=== PATIENT | male | born 1965 | race Caucasian/White ===

== ENCOUNTER 2020-01-08 12:38 | Emergency (ER) | payer OTHER, SELFPAY ==
[2020-01-08 12:54] VITALS: BP 173/82; PULSE 105; RESP 18; TEMP 37.3; O2SAT 173; BMI 42.3
[2020-01-08] MEDS: Lidocaine HCl 1 % MPF 5 ML VIAL SUBCUT ×2 (13:53)
[2020-01-08 14:17] VITALS: BP 150/70; PULSE 100; RESP 18; TEMP 36.8; O2SAT 97
--- NOTE | 2020-01-08 15:07 | PC.NURSE ---
Report given to Nasreen VÁZQUEZ. No further questions from RN taking over. provider aware.
--- NOTE | 2020-01-08 15:12 | ED.LOWEXIN ---
HPI - Extremity Injury (Lower) General Chief Complaint: Extremity Injury, Lower Stated Complaint: TOE PAIN Time Seen by Provider: 01/08/20 13:40 History of Present Illness HPI Narrative: patient complains of partly torn off nail on right big toe, no other injury no other complaints Related Data Previous Rx's Medication Instructions Recorded ibuprofen 600 mg PO Q6H PRN #20 tab 01/08/20 Allergies Allergy/AdvReac Type Severity Reaction Status Date / Time cinnamon [CINNAMON] Allergy Severe ANAPHYLAXIS Verified 01/08/20 12:54 Penicillins Allergy Mild FAINTING Unverified 12/16/19 16:45 penicillin V Allergy Unknown Unconscious Verified 01/08/20 12:54 Review of Systems Review of Systems: no fever no chills no shortness of breath no numbness no weakness no tingling, no other injury PMFSH Past Medical History Source: nursing notes reviewed Medical History (Updated 01/08/20 @ 15:14 by ZEN Puente) Diabetes SOB (shortness of breath) Social History Social History Alcohol intake: never Smoking Status: Never smoker Use of substances other than those prescribed or required for medical reasons: No Advance Directives: No Advance Directives Information Provided: No Physical Exam Vital Signs: Vital Signs: Vital Signs Temp Pulse Resp BP Pulse Ox 01/08/20 14:17 98.2 F 100 18 150/70 H 97 01/08/20 12:54 99.2 F 105 H 18 173/82 H 173 H Body Mass Index 42.3 exam no acute distress, A&O x3, Neck is supple Respiratory no respiratory distress Extremities full range of motion in all joints in both legs The right big toe has the distal toenail partially avulsed but it is otherwise attached at the base and there is full range of motion in the joints and no tenderness no evidence of fracture and no laceration Neuro was a and O x3 with no focal weakness , sensation is intact Course Course Course Narrative: procedure note for partially avulsed nail of the right big toe The toe was cleansed with pale a dine The anesthesia was a digital block with 8 cc of 1% lidocaine with full anesthesia With a forceps and scissors the loose part of the distal nail was removed and a bandage applied Discharge Plan Discharge Clinical Impression: Nail avulsion of toe Qualifiers: Encounter type: initial encounter Qualified Code(s): S91.209A - Unspecified open wound of unspecified toe(s) with damage to nail, initial encounter Patient Disposition: Home, Self-Care Additional Instructions: I removed the loosened section of nail No sign infection or fracture Return any time any concerns Prescriptions: New ibuprofen 600 mg tablet 600 mg PO Q6H PRN (Reason: pain) Qty: 20 RF: 0 Interventions: ED Discharge Assessment Last Done: 01/08/20 15:34 Discharge Date/Time: 01/08/20 15:30
[2020-01-08] MEDS: Ibuprofen 600 MG TABLET PO (15:23)
== END 2020-01-08 15:30 | disposition home or self-care (01) ==
PROVIDERS: Emergency Provider Emergency Medicine
DX: S91.201A Unspecified open wound of right great toe with damage to nail, initial encounter (principal); S90.411A Abrasion, right great toe, initial encounter; X58.XXXA Exposure to other specified factors, initial encounter; Y93.9 Activity, unspecified; Y92.9 Unspecified place or not applicable; Y99.9 Unspecified external cause status
CPT/HCPCS: 11730; 99284

== ENCOUNTER 2020-09-13 09:43 | Emergency (ER) | payer OTHER, SELFPAY ==
--- NOTE | ~2020-09-13 | XR_ITS ---
EXAMINATION: XR FOOT, LEFT CLINICAL INFORMATION: Left big toe hit fridge. COMPARISON: None TECHNIQUE: AP, lateral, and oblique views of the left foot. FINDINGS: There is an old fracture base of fifth metatarsal. No acute fracture or dislocation seen. There is no subluxation. The soft tissues are normal. The ankle mortise and subtalar joints are normal. Small calcaneal heel and retrocalcaneal enthesophytes are seen. XR/XR foot LT 2V IMPRESSION: No acute fracture seen. Old fracture fifth base of fifth metatarsal. Small calcaneal and retrocalcaneal enthesophytes.
[2020-09-13 10:00] VITALS: BP 165/86; PULSE 98; RESP 16; TEMP 36.8; O2SAT 98; BMI 44.7
--- NOTE | 2020-09-13 10:07 | ED_ITS ---
HPI - Extremity Injury (Lower) General Chief Complaint: Extremity Injury, Lower Stated Complaint: left toe injury Time Seen by Provider: 09/13/20 09:59 Source: patient Mode of arrival: ambulatory Limitations: no limitations History of Present Illness HPI Narrative: Patient presents ED for left big toe pain. Patient states he hit left big toe on the Fridge last night and had some bleeding. Patient states bleeding resolved but came to ED today to be evaluated. Patient is diabetic and concern for possible infection. Patient has been walking on foot. Related Data Previous Rx's Medication Instructions Recorded ibuprofen 600 mg PO Q6H PRN #20 tab 01/08/20 clindamycin HCl 300 mg PO Q8H #21 cap 09/13/20 Allergies Allergy/AdvReac Type Severity Reaction Status Date / Time cinnamon [CINNAMON] Allergy Severe ANAPHYLAXIS Verified 09/13/20 10:02 Penicillins Allergy Mild FAINTING Verified 09/13/20 10:02 penicillin V Allergy Unknown Unconscious Verified 09/13/20 10:02 Review of Systems Constitutional: Constitutional: Reports as per HPI and Reports no additional constitutional complaints Eyes: Eyes: Reports as per HPI and Reports no additional eye complaints ENT: Reports system reviewed and no additional complaints, except as documented and Reports as per HPI Cardiovascular: Cardiovascular: Reports as per HPI and Reports no additional cardiovascular complaints Respiratory: Respiratory: Reports as per HPI and Reports no additional respiratory complaints Gastrointestinal: Gastrointestinal: Reports as per HPI and Reports no additional gastrointestinal complaints Genitourinary: Genitourinary: Reports no additional male genitourinary complaints and Reports as per HPI Musculoskeletal: Musculoskeletal: Reports no additional musculoskeletal complaints, Reports as per HPI and Reports arthralgias (Left toe pain) Neurologic: Reports system reviewed and no additional complaints, except as documented and Reports as per HPI Psychiatric: Psychiatric: Reports no additional psychiatric complaints and Reports as per HPI [facility] Past Medical History Medical History (Updated 09/13/20 @ 11:03 by ZEN Logan) Diabetes HTN (hypertension) SOB (shortness of breath) Social History Social History Alcohol intake: never Advance Directives: No Advance Directives Information Provided: No Physical Exam Vital Signs: Vital Signs: Last Vital Signs Temp 98.3 F 09/13/20 10:00 Pulse 98 09/13/20 10:00 Resp 16 09/13/20 10:00 BP 165/86 H 09/13/20 10:00 Pulse Ox 98 09/13/20 10:00 Body Mass Index 44.7 Const: General: cooperative, healthy appearing, comfortable, no acute distress, well developed, alert, awake and Physically active Orientation/consciousness: patient oriented x3 HENMT: Head: Yes normal to inspection, Yes No palpable skull fracture present, Yes normocephalic and Yes atraumatic Eyes: General: appearance normal, both eyes and all related structures Neck: Neck: Yes normal visual inspection, Yes full ROM, Yes no lymphadenopathy, Yes no meningeal signs, Yes trachea midline, Yes supple and No tender Chest: Chest palpation & inspection: normal inspection of the chest and normal palpation of entire chest wall Resp: Effort & Inspection: normal respiratory effort and able to speak in complete sentences Auscultation: clear to auscultation bilaterally Cardio: Jugular venous distension: no JVD Heart sounds: S1 normal heart sound present and S2 normal heart sound present GI: Inspection: Yes normal to inspection and No abdominal wall ecchymosis Palpation (GI): Soft to palpation, not firm, nontender, no guarding and not rigid : General: No CVA tenderness and Yes no CVA tenderness Back/Spine/Pelvis: Back: no CVA tenderness, No CVA tenderness and No back tenderness Skin: General skin exam: no rashes or lesions noted and elasticity normal Neuro: General: patient oriented x3, gait normal, no meningeal signs and CN's II-XI intact bilaterally Cranial nerves: Yes CN's II-XII intact bilaterally Extrem: General: Yes normal to inspection and Yes full ROM Ankle/foot/toe images: 1. Abrasion with dried blood. Negative for any deformity or ecchymosis. Negative for subungual hematoma. Was sent for x-ray to e valuate for fracture. Vascular/motor/neuro exam is intact Psych: Appearance: grossly normal, well kempt and not disheveled Course Course Course Narrative: Abrasion on foot. Was sent for x-ray. Tdap ordered. Reevaluation(s) Reevaluation #1: Negative for any fractures of foot. Patient received Tdap. Will be discharged with antibiotics to prevent infection. Patient has diabetes Time: 11:02 MDM - Extremity Injury (Lower) MDM Narrative Medical decision making narrative: Abrasion. Discharge Plan Discharge Clinical Impression: Abrasion foot/toe Patient Disposition: Home, Self-Care Instructions: Abrasion (ED) Additional Instructions: Return to the ED immediately for any redness, swelling, pus discharge, foul odor, fever, chills, worsening pain, or any other concerning symptoms. X-rays came back negative for fracture. Due to history of diabetes will give clindamycin to prevent infection of abrasion. Prescriptions: New clindamycin HCl 300 mg capsule 300 mg PO Q8H Qty: 21 RF: 0 No Action ibuprofen 600 mg tablet 600 mg PO Q6H PRN (Reason: pain) Qty: 20 RF: 0 Referrals: Pepper Cosme MD [Primary Care Provider] - 2 days (Foot pain due to trauma. Positive for abrasion. Foot x-ray negative for fractures. Discharge with antibiotics) Interventions: ED Discharge Assessment Last Done: 09/13/20 11:16 Discharge Date/Time: 09/13/20 11:16 Print Language: Chadian
[2020-09-13] MEDS: Ibuprofen 800 MG TABLET PO (10:30)
[2020-09-13] MEDS: Diphth,Pertus(ACell),Tet Adult 0.5 ML SYRINGE IM (10:30)
== END 2020-09-13 11:16 | disposition home or self-care (01) ==
PROVIDERS: Emergency Provider Emergency Medicine; PCP Pediatrics
DX: S90.812A Abrasion, left foot, initial encounter (principal); E11.9 Type 2 diabetes mellitus without complications; I10 Essential (primary) hypertension; W22.09XA Striking against other stationary object, initial encounter; Y93.9 Activity, unspecified; Y92.9 Unspecified place or not applicable; Y99.9 Unspecified external cause status
CPT/HCPCS: 73620; 90471; 90715; 99283; 99284

== ENCOUNTER 2020-12-02 11:00 | Emergency (ER) | payer OTHER, SELFPAY ==
--- NOTE | ~2020-12-02 | XR_ITS ---
EXAMINATION: XR CHEST CLINICAL INFORMATION: Shortness of breath COMPARISON: Previous chest x-ray most recent July 2011 and left shoulder x-rays most recent February 2019 TECHNIQUE: Frontal view of the chest was obtained. FINDINGS: The cardiac silhouette is enlarged. There may be pulmonary venous redistribution. The lungs are otherwise clear. There is no pleural effusion or pneumothorax. There are degenerative changes of the spine and left shoulder. XR/XR chest 1V IMPRESSION: Enlarged cardiac silhouette and question pulmonary venous redistribution. No evidence of pulmonary edema or pneumonia..
[2020-12-02 11:20] VITALS: BP 211/99; PULSE 103; RESP 26; TEMP 36.8; O2SAT 100; BMI 40.1
[2020-12-02 11:23] VITALS: PULSE 104; RESP 35; O2SAT 100
[2020-12-02 11:59] VITALS: BP 161/100; PULSE 97; RESP 16; TEMP 36.7; O2SAT 97
[2020-12-02 12:00] VITALS: BP 151/75; PULSE 100; RESP 18; O2SAT 100
[2020-12-02 12:06] LABS: MANUAL DIFF FLAG NO
[2020-12-02 12:07] LABS: Basophils Absolute Auto 0.1 X10*3/uL (0.0-0.2); Basophils Percent Auto 0.5 % (0-2); Eosinophils Absolute Auto 0.1 X10*3/uL (0.0-0.4); Eosinophils Percent Auto 1.3 % (0-4); Hematocrit 44.7 % (42-52); Hemoglobin 14.8 g/dl (14.0-18.0); Imm Gran Abs Auto 0.12 X10*3/uL (0.00-0.03); Imm Gran Pct Auto 1.3 % (0.0-0.4); Lymphocytes Absolute Auto 1.4 X10*3/uL (1.2-4.9); Lymphocytes Percent Auto 14.6 % (20-40); Mean Corpuscular HGB Conc 33.1 g/dl (31.0-36.0); Mean Corpuscular Hemoglobin 27.8 pg (27.0-33.0); Mean Corpuscular Volume 83.9 fL (80-98); Mean Platelet Volume 11.6 fL (9.4-12.4); Monocytes Absolute Auto 0.4 X10*3/uL (0.1-1.2); Monocytes Percent Auto 4.5 % (2-11); Neutrophils Absolute Auto 7.2 X10*3/uL (2.0-8.3); Neutrophils Percent Auto 77.8 % (45-73); Platelet Count 247 X10*3/uL (160-400); Red Blood Count 5.33 X10*6/uL (4.60-5.80); Red Cell Distribution Width 13.3 % (11.0-16.0); White Blood Count 9.3 X10*3/uL (4.8-10.8)
--- NOTE | 2020-12-02 12:09 | PC.NURSE ---
RN aware POC [id number]
[2020-12-02 12:13] LABS: Glucose, Whole Blood 320 mg/dL (60-115)
[2020-12-02 12:13] LABS: Carbon Monoxide Refer to POC result
[2020-12-02 12:15] LABS: Carbon Monoxide POC 1.7 %
[2020-12-02 12:23] LABS: COVID-19 Test Negative (Negative); IDNOW Serial# 55D5AD1C
--- NOTE | 2020-12-02 12:29 | ED_ITS ---
HPI - SOB/Dyspnea General Chief Complaint: Dyspnea Stated Complaint: diff breathing x2 hrs Time Seen by Provider: 12/02/20 11:35 Source: patient Mode of arrival: EMS History of Present Illness HPI Narrative: 55-year-old male with arrival via EMS after he woke up short of breath but denies any headache, dizziness, no visual disturbances, no confusion. Patient has a history of obstructive sleep apnea and states that he did not use his CPAP machine last night. He endorses that yesterday his stove was noted to be having a gas leak, this was evaluated by the [employer] and multiple levels were checked within the house and identified to be safe in the patient yesterday had been instructed to return to his home as there were no further concerns. Patient states that he then went to sleep up stairs, but did not wear his CPAP machine and then woke up short of breath. He denies any recent fever, chills, sore throat, GI or symptoms. Patient states he has not gotten his COVID-19 vaccine. Related Data Previous Rx's Medication Instructions Recorded ibuprofen 600 mg tablet 600 mg PO Q6H PRN #20 tab 01/08/20 clindamycin HCl 300 mg capsule 300 mg PO Q8H #21 cap 09/13/20 Allergies Allergy/AdvReac Type Severity Reaction Status Date / Time cinnamon [CINNAMON] Allergy Severe ANAPHYLAXIS Verified 09/13/20 10:02 Penicillins Allergy Mild FAINTING Verified 09/13/20 10:02 penicillin V Allergy Unknown Unconscious Verified 09/13/20 10:02 Review of Systems Review of Systems: Pertinent positives and negatives as stated in HPI 10 point review of systems is otherwise negative. [facility] Past Medical History Source: nursing notes reviewed Medical History Diabetes HTN (hypertension) SOB (shortness of breath) Social History Social History Alcohol intake: never Advance Directives: No Advance Directives Information Provided: No Physical Exam Vital Signs: Vital Signs: Last Vital Signs Temp 98.1 F 12/02/20 14:23 Pulse 101 H 12/02/20 14:23 Resp 14 12/02/20 14:23 BP 173/77 H 12/02/20 14:23 Pulse Ox 95 12/02/20 14:23 Body Mass Index 40.1 VITAL SIGNS: Reviewed. GENERAL: Well developed, well nourished, in no acute distress. HEAD: Normocephalic/atraumatic, EYES: PERRLA, EOMI EARS: Ext canals without abnormality, TMs non-bulging and non-erythematous NOSE: Nares patent bilateral OROPHARYNX: no oral lesions noted, posterior pharynx clear NECK: Supple, no adenopathy LUNGS: Note tachypnea, no wheeze, good inspiratory effort, completing entire sentences, Normal breath sounds SpO2<100> patient on BiPAP and then converted to 100% non-rebreather for suspicion of carbon monoxide exposure. CARDIOVASCULAR: Regular rate and rhythm without noted murmurs, no JVD or lower extremity edema. ABDOMEN: Obese, Soft, non-tender, non-distended with bowel sounds. SKIN: Inspection of the skin reveals no rashes NEUROLOGIC: Alert and oriented x 4. Strength and sensation to light touch were grossly intact x 4. Course Course Course Narrative: 55-year-old male with history and clinical presentation less suspicious for carbon monoxide exposure rather than patient not using CPAP machine at night and likely became acutely hypoxic. Review of all investigations thus far negative for evidence carbon monoxide exposure, patient is a nonsmoker and does not have a history of COPD or asthma. On evaluation, I removed the 100% non-rebreather for evaluation of patient's breathing. Re-evaluation patient continues to improve, it is noted that patient has a glucose of 350 however no evidence of DKA or HHS and patient will be discharged home and take his prescribed medications. In addition, there is noted car diomegaly on the chest x-ray however the comparison is from 11 years ago and patient has had significant health changes during the interim. A follow-up BNP to evaluate the cardiomegaly further supports absent clinical findings to suggest acute heart failure as a contributing feature of patient's presentation. He is otherwise discharged home in stable condition with strict instructions to follow-up with his primary care provider on Friday morning. MDM - SOB/Dyspnea Lab Data Result diagrams: 12/02/20 11:56 12/02/20 11:56 Labs: Lab Results 12/02/20 12/02/20 12/02/20 Range/Units 11:56 11:56 11:56 WBC 9.3 (4.8-10.8) X10*3/uL RBC 5.33 (4.60-5.80) X10*6/uL Hgb 14.8 (14.0-18.0) g/dl Hct 44.7 (42-52) % MCV 83.9 (80-98) fL MCH 27.8 (27.0-33.0) pg MCHC 33.1 (31.0-36.0) g/dl RDW 13.3 (11.0-16.0) % Plt Count 247 (160-400) X10*3/uL MPV 11.6 (9.4-12.4) fL Immature Gran % (Auto) 1.3 H (0.0-0.4) % Neut % (Auto) 77.8 H (45-73) % Lymph % (Auto) 14.6 L (20-40) % [place] % (Auto) 4.5 (2-11) % Eos % (Auto) 1.3 (0-4) % Baso % (Auto) 0.5 (0-2) % Lymph # (Auto) 1.4 (1.2-4.9) X10*3/uL [place] # (Auto) 0.4 (0.1-1.2) X10*3/uL Eos # (Auto) 0.1 (0.0-0.4) X10*3/uL Baso # (Auto) 0.1 (0.0-0.2) X10*3/uL Abs Immat Gran (auto) 0.12 H (0.00-0.03) X10*3/uL Absolute Neuts (auto) 7.2 (2.0-8.3) X10*3/uL Absolute Nucleated RBC 0.000 (0.0-0.012) X10*3/uL Nucleated RBC % (auto) 0.0 (0.0-0.2) /100WBC Carboxyhemoglobin % % Sodium 138 (135-145) mmol/L Potassium 4.6 (3.3-5.1) mmol/L Chloride 105 (96-108) mmol/L Carbon Dioxide 23 (22-29) mmol/L Anion Gap 15 (12-20) BUN 14 (9-16) mg/dL Creatinine 0.80 (0.5-1.4) mg/dL Estim Creat Clear Calc 136.3 Estimated GFR > 60 POC Glucose (60-115) mg/dL Random Glucose 350 H* (60-115) mg/dL Calcium 9.0 (8.4-10.2) mg/dL Total Bilirubin 0.9 (0.0-1.0) mg/dL AST 13 (5-37) U/L ALT 12 (0-40) U/L Alkaline Phosphatase 74 (39-117) U/L B-Natriuretic Peptide 32 (<100) pg/mL Total Protein 6.4 L (6.5-8.0) g/dL Albumin 3.8 (3.5-5.0) g/dL COVID-19 (JOSE) (Negative) COVID-19 Clin Com 12/02/20 12/02/20 12/02/20 Range/Units 11:58 12:08 12:08 WBC (4.8-10.8) X10*3/uL RBC (4.60-5.80) X10*6/uL Hgb (14.0-18.0) g/dl Hct (42-52) % MCV (80-98) fL MCH (27.0-33.0) pg MCHC (31.0-36.0) g/dl RDW (11.0-16.0) % Plt Count (160-400) X10*3/uL MPV (9.4-12.4) fL Immature Gran % (Auto) (0.0-0.4) % Neut % (Auto) (45-73) % Lymph % (Auto) (20-40) % [place] % (Auto) (2-11) % Eos % (Auto) (0-4) % Baso % (Auto) (0-2) % Lymph # (Auto) (1.2-4.9) X10*3/uL [place] # (Auto) (0.1-1.2) X10*3/uL Eos # (Auto) (0.0-0.4) X10*3/uL Baso # (Auto) (0.0-0.2) X10*3/uL Abs Immat Gran (auto) (0.00-0.03) X10*3/uL Absolute Neuts (auto) (2.0-8.3) X10*3/uL Absolute Nucleated RBC (0.0-0.012) X10*3/uL Nucleated RBC % (auto) (0.0-0.2) /100WBC Carboxyhemoglobin % 1.7 % Sodium (135-145) mmol/L Potassium (3.3-5.1) mmol/L Chloride (96-108) mmol/L Carbon Dioxide (22-29) mmol/L Anion Gap (12-20) BUN (9-16) mg/dL Creatinine (0.5-1.4) mg/dL Estim Creat Clear Calc Estimated GFR POC Glucose 320 H (60-115) mg/dL Random Glucose (60-115) mg/dL Calcium (8.4-10.2) mg/dL Total Bilirubin (0.0-1.0) mg/dL AST (5-37) U/L ALT (0-40) U/L Alkaline Phosphatase (39-117) U/L B-Natriuretic Peptide (<100) pg/mL Total Protein (6.5-8.0) g/dL Albumin (3.5-5.0) g/dL COVID-19 (JOSE) Negative (Negative) COVID-19 Clin Com See Note Discharge Plan Discharge Clinical Impression: Acute dyspnea Patient Disposition: Home, Self-Care Instructions: Sleep Apnea (DC) Additional Instructions: 1. Resume all home medications as prescribed. This includes using your CPAP machine at night as well as metformin. 2. Follow-up with your primary care provider on Friday morning for re-ev aluation. Return to the ER for acute worsening of symptoms. Prescriptions: No Action ibuprofen 600 mg tablet 600 mg PO Q6H PRN (Reason: pain) Qty: 20 RF: 0 clindamycin HCl 300 mg capsule 300 mg PO Q8H Qty: 21 RF: 0 Referrals: Pepper Cosme MD [Primary Care Provider] - 2 days
[2020-12-02 12:47] LABS: Alanine Aminotransferase 12 U/L (0-40); Albumin Level 3.8 g/dL (3.5-5.0); Alkaline Phosphatase 74 U/L (39-117); Anion Gap 15 (12-20); Aspartate Amino Transferase 13 U/L (5-37); Bilirubin Total 0.9 mg/dL (0.0-1.0); Blood Urea Nitrogen 14 mg/dL (9-16); Carbon Dioxide 23 mmol/L (22-29); Chloride 105 mmol/L (96-108); Creatinine Clr Calc Pharmacy 136.3; Estimated Glomerular Filt Rate > 60; Glucose Random 350 mg/dL (60-115); Potassium 4.6 mmol/L (3.3-5.1); Sodium 138 mmol/L (135-145); Total Protein 6.4 g/dL (6.5-8.0)
[2020-12-02 14:20] LABS: B Type Natriuretic Peptide 32 pg/mL (<100)
[2020-12-02 14:23] VITALS: BP 173/77; PULSE 101; RESP 14; TEMP 36.7; O2SAT 95
== END 2020-12-02 14:58 | disposition home or self-care (01) ==
PROVIDERS: Emergency Provider Student in an Organized Health Care Education/Training Program; PCP Pediatrics
DX: R06.02 Shortness of breath (principal); Z20.822 Contact with and (suspected) exposure to COVID-19; I10 Essential (primary) hypertension; E11.9 Type 2 diabetes mellitus without complications
CPT/HCPCS: 36415; 71045; 80053; 82947; 83880; 85025; 87635; 94660; 99284

== ENCOUNTER 2021-01-23 12:18 | Emergency (ER) | payer OTHER, SELFPAY ==
--- NOTE | ~2021-01-23 | XR_ITS ---
EXAMINATION: XR CHEST CLINICAL INFORMATION: Shortness of breath COMPARISON: Previous chest x-rays most recent 12/02/2020 TECHNIQUE: Frontal view of the chest was obtained. FINDINGS: The cardiac silhouette is enlarged and may be increased in size from previous exams. In particular, the right heart border appears prominent. Hilar and mediastinal contours are unremarkable. Lungs are clear. There is no pleural effusion or pneumothorax. There are degenerative changes of the spine. XR/XR chest 1V IMPRESSION: Enlarged cardiac silhouette. This may be increased from prior exams. Enlarged heart/cardiomyopathy and pericardial effusion should be considered.
[2021-01-23 13:01] VITALS: BP 198/93; PULSE 82; RESP 16; TEMP 36.7; O2SAT 97; BMI 44.7
--- NOTE | 2021-01-23 13:22 | ED_ITS ---
HPI - SOB/Dyspnea General Chief Complaint: Upper Respiratory Symptoms Stated Complaint: diff breathing, sore throat Time Seen by Provider: 01/23/21 13:22 Source: patient Mode of arrival: ambulatory Limitations: no limitations History of Present Illness HPI Narrative: 55-year-old male with history of diabetes on insulin, KYLE, HTN, obesity who presents to the ER with shortness of breath, intermittent chest pains, body aches and pains, weakness and chest congestion for the last 3-4 days. He has history of pneumonia and is concerned he may have pneumonia or COVID-19. He is bringing up yellow phlegm. He presents with his who is ill with similar symptoms. He denies any fever or chills. His biggest complaint is chest congestion. He reports sharp chest pains last night that are now resolved after he took [id number] flu medication. He admits to orthopnea chronically and sleeps with his head of the bed risen. Last night he woke up a few times short of breath and coughing. He also reports new lower extremity swelling over the last few months that he attributes to overall weight gain with the COVID pandemic. MD elicited complaint: shortness of breath and cough Pertinent past history: diabetes Onset (ago): day(s) (3-4 ) Timing: intermittent Severity: moderate Exacerbating factors: lying flat, exertion and coughing Relieving factors: rest Known history of: diabetes Associated symptoms: chest pain, cough, sputum production, orthopnea and chest congestion Treatment prior to arrival: none Related Data Home oxygen amount: none Home Medications Medication Instructions Recorded Confirmed albuterol sulfate 90 mcg/actuation 2 puff INHALATION Q4-6H PRN 01/23/21 01/23/21 aerosol inhaler aspirin 81 mg chewable tablet 81 mg PO DAILY 01/23/21 01/23/21 fluticasone propionate 50 1 spray INTRANASAL DAILY PRN 01/23/21 01/23/21 mcg/actuation nasal spray,suspension insulin glargine 100 unit/mL (3 18 unit SUBCUT DAILY 01/23/21 01/23/21 mL) subcutaneous pen (Lantus Solostar U-100 Insulin) insulin glargine 100 unit/mL (3 22 unit SUBCUT DAILY@1200 01/23/21 01/23/21 mL) subcutaneous pen (Lantus Solostar U-100 Insulin) insulin lispro 100 unit/mL 17 unit SUBCUT DAILY@0700 01/23/21 01/23/21 subcutaneous pen (Humalog KwikPen (U-100) Insulin) insulin lispro 100 unit/mL 21 unit SUBCUT DAILY@1100 01/23/21 01/23/21 subcutaneous pen (Humalog KwikPen (U-100) Insulin) insulin lispro 100 unit/mL 38 unit SUBCUT DAILY@1700 01/23/21 01/23/21 subcutaneous pen (Humalog KwikPen (U-100) Insulin) loratadine 5 mg/5 mL oral solution 10 ml PO DAILY PRN 01/23/21 01/23/21 multivitamin 1 tab PO DAILY 01/23/21 01/23/21 oxycodone-acetaminophen 5 mg-325 1 tab PO Q12H 01/23/21 01/23/21 mg tablet Previous Rx's Medication Instructions Recorded azithromycin 250 mg tablet See Rx Instructions .ROUTE 01/23/21 (Zithromax Z-Simba) .COMPLEX #6 tab guaifenesin 1,200 mg tablet, 1,200 mg PO BID #10 tab 01/23/21 extended release 12 hr (Mucinex) Allergies Allergy/AdvReac Type Severity Reaction Status Date / Time cinnamon [CINNAMON] Allergy Severe ANAPHYLAXIS Verified 01/23/21 13:00 Penicillins Allergy Mild FAINTING Verified 01/23/21 13:00 penicillin V Allergy Unknown Unconscious Verified 01/23/21 13:00 Review of Systems Review of Systems: Constitutional: No Fever, No Chills ENT/Mouth: No sore throat, No Rhinorrhea, No Swallowing Difficulty Eyes: No Eye Pain, No Swelling, No Redness Cardiovascular: + Chest Pain, + SOB, + Orthopnea, + Edema Respiratory: + Cough, + Sputum, No Wheezing, No dyspnea Gastrointestinal: No Nausea, No Vomiting, No Diarrhea, No abdominal Pain Genitourinary: No Dysuria, No Urinary Frequency, No Hematuria Musculoskeletal: No joint pain, + Myalgias Skin: No Skin Lesions, No rash Neuro: No Weakness, No Numbness, No Dizziness, No Headache Psych: No Anxiety/Panic, No Depression Heme/Lymph: No Bruising, No Lymphadenopathy Endocrine: No Polyuria, No Polydipsia PMFSH Past Medical History Medical History Diabetes HTN (hypertension) SOB (shortness of breath) Social History Social History Alcohol intake: never Advance Directives: No Physical Exam Vital Signs: Vital Signs: Last Vital Signs Temp 98.3 F 01/23/21 14:14 Pulse 97 01/23/21 17:01 Resp 18 01/23/21 16:55 BP 165/86 H 01/23/21 16:55 Pulse Ox 96 01/23/21 17:01 Body Mass Index 44.7 Appearance: Alert. Oriented X3. No acute distress. Eyes: Pupils equal, round and reactive to light. ENT: Pharynx normal. Neck: Normal inspection. Neck supple. CVS: Normal heart rate and rhythm. Pulses normal. Respiratory: No respiratory distress. Breath sounds normal. Abdomen: Soft and nontender. +BS x4 Skin: Skin warm and dry. Normal skin color. Normal skin turgor. No rashes. Extremities: 2+ pitting lower extremity edema bilaterally. Neuro: Oriented X 3. No motor deficit. No sensory deficit. Course Course Course Narrative: 55-year-old male with history of poorly controlled diabetes & untreated KYLE presenting to the ER with cough, body aches, chest pain, shortness of breath. He is here with his who is also not feeling well. His vital signs are unremarkable and he is in no distress. Will start with chest x-ray and COVID swab as his symptoms seem to be due to a respiratory infection. Reevaluation(s) Reevaluation #1: Chest x-ray showing cardiomegaly. This is increased from prior study done in November. There is concern for pericardial effusion. He is currently hypertensive, not tachycardic. Will get EKG, lab workup including BMP and troponin. Will also get stat limited echocardiogram to assess for pericardial effusion and pericardial tamponade. Reevaluation #2: Patient is asking to leave the emergency room at this time. He states he has a time sensitive meeting that is very important. Expressed concern about the concern for significant fluid around his heart that may need urgent intervention or very close monitoring and inpatient setting however he is declining to wait for the results or admission to the hospital. He expressed understanding that leaving against advice may lead to . He agrees to follow-up with cardiology as soon as possible and is asking for their number. game technician also used to ensure understanding and comprehension of the risks. MDM - SOB/Dyspnea Differential Diagnosis Differential diagnosis: Likely acute exacerbation of chronic obstructive airways disease, congestive heart failure, pneumonia, asthma with exacerbation, pleural effusion, sleep apnea and anemia Medical Records Attestation: I reviewed the patient's medical records. Lab Data Attestation: I reviewed the patient's lab results. Result diagrams: 01/23/21 17:19 01/23/21 14:30 Labs: Lab Results 01/23/21 01/23/21 01/23/21 Range/Units 13:10 14:30 14:30 WBC (4.8-10.8) X10*3/uL RBC (4.60-5.80) X10*6/uL Hgb (14.0-18.0) g/dl Hct (42-52) % MCV (80-98) fL MCH (27.0-33.0) pg MCHC (31.0-36.0) g/dl RDW (11.0-16.0) % Plt Count (160-400) X10*3/uL MPV (9.4-12.4) fL Immature Gran % (Auto) (0.0-0.4) % Neut % (Auto) (45-73) % Lymph % (Auto) (20-40) % Reagan % (Auto) (2-11) % Eos % (Auto) (0-4) % Baso % (Auto) (0-2) % Lymph # (Auto) (1.2-4.9) X10*3/uL Reagan # (Auto) (0.1-1.2) X10*3/uL Eos # (Auto) (0.0-0.4) X10*3/uL Baso # (Auto) (0.0-0.2) X10*3/uL Abs Immat Gran (auto) (0.00-0.03) X10*3/uL Absolute Neuts (auto) (2.0-8.3) X10*3/uL Absolute Nucleated RBC (0.0-0.012) X10*3/uL Nucleated RBC % (auto) (0.0-0.2) /100WBC Sodium 140 (135-145) mmol/L Potassium 4.1 (3.3-5.1) mmol/L Chloride 107 (96-108) mmol/L Carbon Dioxide 27 (22-29) mmol/L Anion Gap 10 L (12-20) BUN 12 (9-16) mg/dL Creatinine 0.81 (0.5-1.4) mg/dL Estim Creat Clear Calc 151.4 Estimated GFR > 60 Random Glucose 212 H D (60-115) mg/dL Calcium 9.0 (8.4-10.2) mg/dL Magnesium 2.0 (1.6-2.6) mg/dL Total Bilirubin 0.7 (0.0-1.0) mg/dL Direct Bilirubin 0.2 (0.0-0.5) mg/dL AST 11 (5-37) U/L ALT 15 (0-40) U/L Alkaline Phosphatase 75 (39-117) U/L Troponin I High Sens 12.1 (<3.5-35.0) ng/L C-Reactive Protein 0.43 (< or = 0.50) mg/dL B-Natriuretic Peptide 29 (<100) pg/mL Total Protein 6.6 (6.5-8.0) g/dL Albumin 3.9 (3.5-5.0) g/dL Urine Color Urine Appearance Urine pH (5.0-8.0) Ur Specific Covert (1.005-1.025) Urine Protein (NEG-TRACE) MG/DL Urine Glucose (UA) (NEG) MG/DL Urine Ketones (NEG) MG/DL Urine Blood (NEG) Urine Nitrite (NEG) Ur Leukocyte Esterase (NEG) Urine RBC (0) /HPF Urine WBC (0-4) /HPF Ur Squamous Epith Cells /LPF Urine Bacteria /LPF COVID-19 (JOSE) Negative (Negative) COVID-19 Clin Com See Note 01/23/21 01/23/21 Range/Units 14:53 17:19 WBC 9.3 (4.8-10.8) X10*3/uL RBC 4.34 L (4.60-5.80) X10*6/uL Hgb 12.1 L (14.0-18.0) g/dl Hct 36.9 L (42-52) % MCV 85.0 (80-98) fL MCH 27.9 (27.0-33.0) pg MCHC 32.8 (31.0-36.0) g/dl RDW 13.6 (11.0-16.0) % Plt Count 290 (160-400) X10*3/uL MPV 11.3 (9.4-12.4) fL Immature Gran % (Auto) 0.9 H (0.0-0.4) % Neut % (Auto) 65.5 (45-73) % Lymph % (Auto) 24.9 (20-40) % Reagan % (Auto) 6.6 (2-11) % Eos % (Auto) 1.7 (0-4) % Baso % (Auto) 0.4 (0-2) % Lymph # (Auto) 2.3 (1.2-4.9) X10*3/uL Reagan # (Auto) 0.6 (0.1-1.2) X10*3/uL Eos # (Auto) 0.2 (0.0-0.4) X10*3/uL Baso # (Auto) 0.0 (0.0-0.2) X10*3/uL Abs Immat Gran (auto) 0.08 H (0.00-0.03) X10*3/uL Absolute Neuts (auto) 6.1 (2.0-8.3) X10*3/uL Absolute Nucleated RBC 0.000 (0.0-0.012) X10*3/uL Nucleated RBC % (auto) 0.0 (0.0-0.2) /100WBC Sodium (135-145) mmol/L Potassium (3.3-5.1) mmol/L Chloride (96-108) mmol/L Carbon Dioxide (22-29) mmol/L Anion Gap (12-20) BUN (9-16) mg/dL Creatinine (0.5-1.4) mg/dL Estim Creat Clear Calc Estimated GFR Random Glucose (60-115) mg/dL Calcium (8.4-10.2) mg/dL Magnesium (1.6-2.6) mg/dL Total Bilirubin (0.0-1.0) mg/dL Direct Bilirubin (0.0-0.5) mg/dL AST (5-37) U/L ALT (0-40) U/L Alkaline Phosphatase (39-117) U/L Troponin I High Sens (<3.5-35.0) ng/L C-Reactive Protein (< or = 0.50) mg/dL B-Natriuretic Peptide (<100) pg/mL Total Protein (6.5-8.0) g/dL Albumin (3.5-5.0) g/dL Urine Color YELLOW Urine Appearance CLEAR Urine pH 6.0 (5.0-8.0) Ur Specific Covert 1.020 (1.005-1.025) Urine Protein 2+ H (NEG-TRACE) MG/DL Urine Glucose (UA) >=1000 H (NEG) MG/DL Urine Ketones NEG (NEG) MG/DL Urine Blood TRACE (NEG) Urine Nitrite NEG (NEG) Ur Leukocyte Esterase NEG (NEG) Urine RBC 0-2 (0) /HPF Urine WBC 0 (0-4) /HPF Ur Squamous Epith Cells NONE /LPF Urine Bacteria TRACE /LPF COVID-19 (JOSE) (Negative) COVID-19 Clin Com ECG Data Attestation: I personally reviewed and interpreted this ECG as follows: ECG interpretation date: 01/23/21 ECG interpretation time: 17:30 Interpretation: Normal sinus rhythm, heart rate 95 beats per minute, normal WI interval 164 MS, normal QRS, no ST segment elevations or depressions. Normal voltage. Discharge Plan Discharge Clinical Impression: Pericardial effusion, Bronchitis Patient Disposition: Left Against Medical Advice Instructions: Acute Bronchitis (ED), Pericardial Effusion (ED) Additional Instructions: Preliminary testing today showed concerning signs of fluid around her heart. This is abnormal finding that can be life-threatening. Your currently leaving against medical advice before all lab and test results can be resulted and plan can be made. You need to follow-up with the senior net application developer as soon as possible. Name and number below. If you have any worsening shortness of breath, chest pain, dizziness, fainting episodes, or any other concerning symptoms come back to the ER right away for further evaluation. Prescriptions: New azithromycin [Zithromax Z-Simba] 250 mg tablet See Rx Instructions .ROUTE .COMPLEX Qty: 6 RF: 0 Mucinex 1,200 mg tablet extended release 12hr 1,200 mg PO BID Qty: 10 RF: 0 No Action loratadine 5 mg/5 mL solution 10 ml PO DAILY PRN (Reason: Allergy Symptoms) RF: 0 oxycodone-acetaminophen 5-325 mg tablet 1 tab PO Q12H RF: 0 insulin lispro [Humalog KwikPen Insulin] 100 unit/mL insulin pen 17 unit subcut DAILY@0700 RF: 0 Lantus Solostar U-100 Insulin 100 unit/mL (3 mL) insulin pen 18 unit subcut DAILY RF: 0 multivitamin Tablet 1 tab PO DAILY RF: 0 aspirin 81 mg Tablet,Chewable 81 mg PO DAILY RF: 0 albuterol sulfate 90 mcg/actuation Hfa Aerosol Inhaler 2 puff INHALATION Q4-6H PRN (Reason: Wheezing) RF: 0 fluticasone propionate [Flonase] 50 mcg/actuation [place],Suspension 1 spray INTRANASAL DAILY PRN (Reason: Congestion) RF: 0 insulin lispro [Humalog KwikPen Insulin] 100 unit/mL insulin pen 21 unit subcut DAILY@1100 RF: 0 insulin lispro [Humalog KwikPen Insulin] 100 unit/mL insulin pen 38 unit subcut DAILY@1700 RF: 0 Lantus Solostar U-100 Insulin 100 unit/mL (3 mL) insulin pen 22 unit subcut DAILY@1200 RF: 0 Referrals: Felix Tracy MD [Physician] - 2 days (pericardial effusion ) Stand Alone Forms: Against Medical Advice
[2021-01-23 13:37] LABS: COVID-19 Test Negative (Negative)
[2021-01-23 14:14] VITALS: BP 187/87; PULSE 98; RESP 18; TEMP 36.8; O2SAT 96
--- NOTE | 2021-01-23 14:22 | ECG_ITS ---
Test Reason : large heart Blood Pressure : / mmHG Vent. Rate : 095 BPM Atrial Rate : 095 BPM P-R Int : 164 ms QRS Dur : 090 ms QT Int : 342 ms P-R-T Axes : 061 046 062 degrees QTc Int : 429 ms Normal sinus rhythm Normal ECG Premature ventricular complexes is no longer Present Referred By: Latonia Koch Electronically Signed By:WERNER MEEKS MD
[2021-01-23 14:39] VITALS: BP 177/90; PULSE 80
[2021-01-23] MEDS: lisinopriL 20 MG TABLET PO (14:39)
[2021-01-23 14:55] LABS: Alanine Aminotransferase 15 U/L (0-40); Albumin Level 3.9 g/dL (3.5-5.0); Alkaline Phosphatase 75 U/L (39-117); Anion Gap 10 (12-20); Aspartate Amino Transferase 11 U/L (5-37); Bilirubin Direct 0.2 mg/dL (0.0-0.5); Bilirubin Total 0.7 mg/dL (0.0-1.0); Blood Urea Nitrogen 12 mg/dL (9-16); Carbon Dioxide 27 mmol/L (22-29); Chloride 107 mmol/L (96-108); Creatinine Clr Calc Pharmacy 151.4; Estimated Glomerular Filt Rate > 60; Glucose Random 212 mg/dL (60-115); Potassium 4.1 mmol/L (3.3-5.1); Sodium 140 mmol/L (135-145); Total Protein 6.6 g/dL (6.5-8.0)
--- NOTE | 2021-01-23 14:56 | CA_ITS ---
Transthoracic Echocardiogram Patient (Last, First, Middle): Jay Mays, Gender: Male Date of : 1965 Age: 55 Procedure Date: 01/23/2021 Procedure Type: Transthoracic Echocardiogram Location: ER Height: 182.88 cm Weight: 149.69 kg BSA: 2.64 m2 Heart Rate: bpm BP: 192 / 104 mmHg Shank Maker: Referring MD: Latonia ZALDIVAR Symptoms: enlarged cardiac silouette, assess for pericardial effusion Study Quality: Fair ECG Rhythm: Sinus Conclusions: - Normal left ventricular size and systolic function. - There is severely increased left ventricular wall thickness. - Normal right ventricular cavity size and systolic function. - There is a moderate circumferential pericardial effusion. Findings Left Ventricle Normal left ventricular size and systolic function. There is severely increased left ventricular wall thickness. The visually estimated ejection fraction is between 55-60%. Regional wall motion abnormalities can not be excluded due to suboptimal endocardial definition. Diastolic function is indeterminate on the basis of available data. Right Ventricle Normal right ventricular cavity size and systolic function. Pericardium/Pleural The inferior vena cava is dilated with reduced respiratory variability. There is a moderate circumferential pericardial effusion. There is no significant variation on mitral inflow. No definitive signs of cardiac tamponade. Prior Study Comparison No prior study available for comparison. Measurements 2D Linear Measurements IVSd: 1.69 0.6-0.9/0.6-1.0 cm LVIDd: 4.62 3.9-5.3/4.2-5.9 cm LVIDd Index: 1.75 2.4-3.2/2.2-3.1 cm/m2 LVIDs: 3.52 2.0-3.6 cm LVPWd: 1.60 0.7-1.1 cm LV Mass: 412.15 67-162/88-224 g LV Mass Index: 156.12 43-95/49-115 g/m2 2D Systolic Function EF 4C: 46.60 >55% EF 2C: 57.40 >55% EF BiP: 51.70 >55% Updated in Other Vendor System with Status of Final Felix Tracy MD electronically signed on 01/24/2021 2:13:09 PM with status of Final
[2021-01-23 14:59] LABS: B Type Natriuretic Peptide 29 pg/mL (<100); Troponin-I High Sensitivity 12.1 ng/L (<3.5-35.0)
[2021-01-23 15:06] LABS: Appearance Urine CLEAR; Color Urine YELLOW; Glucose Urine UA >=1000 MG/DL (NEG); Leukocyte Esterase Urine NEG (NEG); Nitrite Urine NEG (NEG); UACC Culture Trigger NO; Urine Blood TRACE (NEG); Urine Ketones NEG (NEG); Urine Protein 2+ MG/DL (NEG-TRACE)
[2021-01-23 15:15] LABS: Bacteria Urine TRACE /LPF; RBC Urine 0-2 /HPF (0); WBC Urine 0 /HPF (0-4)
[2021-01-23 15:27] VITALS: BP 192/100; PULSE 90; RESP 19; O2SAT 98
--- NOTE | 2021-01-23 15:39 | PHA.MEDREC ---
Pharmacy Consult ? Medication Reconciliation Pharmacy has completed the medication reconciliation. Patient's dose of insulin varies throughout the entire day. He has Lantus in the AM and afternoon as well as different dose of Humalog TIDAC. Kimi Patten, PharmD
[2021-01-23 16:55] VITALS: BP 165/86; PULSE 110; RESP 18; O2SAT 93
[2021-01-23 17:01] VITALS: PULSE 97; O2SAT 96
[2021-01-23 17:28] LABS: C Reactive Protein 0.43 mg/dL (< or = 0.50)
[2021-01-23 17:31] LABS: MANUAL DIFF FLAG NO
[2021-01-23 17:34] LABS: Basophils Percent Auto 0.4 % (0-2); Eosinophils Absolute Auto 0.2 X10*3/uL (0.0-0.4); Eosinophils Percent Auto 1.7 % (0-4); Hematocrit 36.9 % (42-52); Hemoglobin 12.1 g/dl (14.0-18.0); Imm Gran Abs Auto 0.08 X10*3/uL (0.00-0.03); Imm Gran Pct Auto 0.9 % (0.0-0.4); Lymphocytes Absolute Auto 2.3 X10*3/uL (1.2-4.9); Lymphocytes Percent Auto 24.9 % (20-40); Mean Corpuscular HGB Conc 32.8 g/dl (31.0-36.0); Mean Corpuscular Hemoglobin 27.9 pg (27.0-33.0); Mean Platelet Volume 11.3 fL (9.4-12.4); Monocytes Absolute Auto 0.6 X10*3/uL (0.1-1.2); Monocytes Percent Auto 6.6 % (2-11); Neutrophils Absolute Auto 6.1 X10*3/uL (2.0-8.3); Neutrophils Percent Auto 65.5 % (45-73); Platelet Count 290 X10*3/uL (160-400); Red Blood Count 4.34 X10*6/uL (4.60-5.80); Red Cell Distribution Width 13.6 % (11.0-16.0); White Blood Count 9.3 X10*3/uL (4.8-10.8)
[2021-01-23 17:58] LABS: Troponin-I High Sensitivity 12.7 ng/L (<3.5-35.0)
== END 2021-01-23 18:05 | disposition left against medical advice (07) ==
PROVIDERS: Physician Assistant; Emergency Provider Emergency Medicine; PCP Pediatrics
DX: I31.3 Pericardial effusion (noninflammatory) (principal); J20.9 Acute bronchitis, unspecified; R53.1 Weakness; R06.02 Shortness of breath; E11.9 Type 2 diabetes mellitus without complications; I10 Essential (primary) hypertension; Z79.4 Long term (current) use of insulin; Z20.822 Contact with and (suspected) exposure to COVID-19
CPT/HCPCS: 36415; 71045; 80048; 80076; 81001; 81003; 83735; 83880; 84484; 85025; 86140; 87635; 93005; 93308; 99283; 99284

== ENCOUNTER 2021-03-06 12:30 | Emergency (ER) | payer OTHER, SELFPAY ==
[2021-03-06] VITALS (25 sets, daily range): BP systolic 102–167; BP diastolic 43–104; PULSE 92–141; RESP 18–28; TEMP 35.2–37.3; O2SAT 94–100; BMI 42.8
--- NOTE | ~2021-03-06 | XR_ITS ---
EXAMINATION: XR CHEST CLINICAL INFORMATION: SOB. COMPARISON: Chest 01/23/2021 TECHNIQUE: 2 views of the chest were obtained. FINDINGS: There is biventricular cardiomegaly with normal pulmonary vascularity. Lungs are well-expanded and clear. There is moderate spondylosis dorsal spine. No lytic process seen. XR/XR chest 2V IMPRESSION: Biventricular cardiomegaly. No acute process seen.
--- NOTE | ~2021-03-06 | CT_ITS ---
PROCEDURE: CT GUIDED ABSCESS DRAINAGE CLINICAL INFORMATION: Moderate to large pericardial effusion. COMPARISON: None TECHNIQUE: Following explaining CT fluoroscopy-guided placement of pericardial drain procedure, benefits and risks, a written consent was obtained. Patient was placed supine on CT fluoroscopy table and preliminary CT imaging was obtained. An optimal site was selected along the left xiphisternum and marked. Marked site was cleaned and draped in usual sterile manner. 1% lidocaine was injected at puncture site. Through a small skin incision a 5 Malaysian Yueh catheter was advanced into the right pericardial space from left to right approach. After observing fluid return, stylet was withdrawn and a 0.035 J-wire was advanced and sheath removed. A 6 Malaysian APD catheter with stylet was introduced over the guidewire and the stiffener and the guidewire were removed and a pigtail was formed. The pigtail was anchored to the skin with non-hemostat sutures. The catheter was drained into a simple drainage bag. Simple dressing was applied postprocedure on this puncture site. Hemorrhagic fluid was noted. Sedation was provided by anesthesia. Patient was stable during and after the exam. This CT examination was performed using dose optimization techniques as appropriate, variously including the following: *Automated exposure control *Adjustment of mA and/or kV according to patient size (this includes techniques or standardized protocols for targeted exams where dose is matched to indication/reason for exam; i.e. extremities or head) *Use of iterative reconstruction technique DLP: 1775 mGy-cm FINDINGS: There is [id number] right pericardial effusion on CT. Successful placement of a pericardial drain without immediate complications. CT/CT guided drainage IMPRESSION: CT fluoroscopy-guided successful placement of a right pericardial drain.
--- NOTE | 2021-03-06 12:49 | ECG_ITS ---
Test Reason : NEAR SYNCOPE/SOB Blood Pressure : / mmHG Vent. Rate : 114 BPM Atrial Rate : 114 BPM P-R Int : 142 ms QRS Dur : 080 ms QT Int : 328 ms P-R-T Axes : 060 051 046 degrees QTc Int : 452 ms Sinus tachycardia Septal infarct , new Inferolateral injury pattern ACUTE DE / STEMI Abnormal ECG When compared with ECG of 23-JAN-2021 14:37, Premature ventricular complexes are no longer Present Acute Septal infarct is now Present Referred By: Latonia Koch Electronically Signed By:
--- NOTE | 2021-03-06 13:00 | ED_ITS ---
HPI - SOB/Dyspnea General Chief Complaint: Dyspnea Stated Complaint: SOB Time Seen by Provider: 03/06/21 12:48 Source: patient and EMS Mode of arrival: EMS Limitations: no limitations History of Present Illness HPI Narrative: 55-year-old male with a history of DM on insulin, KYLE, HTN, obesity, history of pneumonia, history of pericardial effusion diagnosed in December (uknown etiology) who presents to the ER from home via EMS with worsening shortness of breath over the last 5-6 days and intermittent chest tightness. Patient reports he was unable to sleep at all last night because of shortness of breath and difficulty breathing. He states he has had to sleep with several pillows due to shortness of breath. He has had intermittent chest tightness and squeezing sensation along with shortness of breath episodes. He also endoses lightheadedness, dizziness and feeling like he was going to pass out. He has had also had a cough and some phlegm production. He is worried he has pneumonia. MD elicited complaint: shortness of breath and chest pain Pertinent past history: asthma and other (pericardial effusion) Onset (ago): unknown Timing: intermittent Severity: moderate Exacerbating factors: lying flat and exertion Relieving factors: upright position Known history of: asthma and diabetes Associated symptoms: chest pain, orthopnea, dizziness and lightheadedness Treatment prior to arrival: none Related Data Home oxygen amount: none Home Medications Medication Instructions Recorded Confirmed albuterol sulfate 90 mcg/actuation 2 puff INHALATION Q4-6H PRN 01/23/21 01/23/21 aerosol inhaler aspirin 81 mg chewable tablet 81 mg PO DAILY 01/23/21 01/23/21 fluticasone propionate 50 1 spray INTRANASAL DAILY PRN 01/23/21 01/23/21 mcg/actuation nasal spray,suspension insulin glargine 100 unit/mL (3 18 unit SUBCUT DAILY 01/23/21 01/23/21 mL) subcutaneous pen (Lantus Solostar U-100 Insulin) insulin glargine 100 unit/mL (3 22 unit SUBCUT DAILY@1200 01/23/21 01/23/21 mL) subcutaneous pen (Lantus Solostar U-100 Insulin) insulin lispro 100 unit/mL 17 unit SUBCUT DAILY@0700 01/23/21 01/23/21 subcutaneous pen (Humalog KwikPen (U-100) Insulin) insulin lispro 100 unit/mL 21 unit SUBCUT DAILY@1100 01/23/21 01/23/21 subcutaneous pen (Humalog KwikPen (U-100) Insulin) insulin lispro 100 unit/mL 38 unit SUBCUT DAILY@1700 01/23/21 01/23/21 subcutaneous pen (Humalog KwikPen (U-100) Insulin) loratadine 5 mg/5 mL oral solution 10 ml PO DAILY PRN 01/23/21 01/23/21 multivitamin 1 tab PO DAILY 01/23/21 01/23/21 oxycodone-acetaminophen 5 mg-325 1 tab PO Q12H 01/23/21 01/23/21 mg tablet Previous Rx's Medication Instructions Recorded azithromycin 250 mg tablet See Rx Instructions .ROUTE 01/23/21 (Zithromax Z-Simba) .COMPLEX #6 tab guaifenesin 1,200 mg tablet, 1,200 mg PO BID #10 tab 01/23/21 extended release 12 hr (Mucinex) Allergies Allergy/AdvReac Type Severity Reaction Status Date / Time cinnamon [CINNAMON] Allergy Severe ANAPHYLAXIS Verified 01/23/21 13:00 Penicillins Allergy Mild FAINTING Verified 01/23/21 13:00 penicillin V Allergy Unknown Unconscious Verified 01/23/21 13:00 Review of Systems Review of Systems: Constitutional: No Fever, No Chills ENT/Mouth: No sore throat, No Rhinorrhea, No Swallowing Difficulty Eyes: No Eye Pain, No Swelling, No Redness Cardiovascular: + Chest Pain, + SOB, + Orthopnea, No Edema Respiratory: + Cough, + Sputum, No Wheezing, No dyspnea Gastrointestinal: No Nausea, No Vomiting, No Diarrhea, No abdominal Pain Genitourinary: No Dysuria, No Urinary Frequency, No Hematuria Musculoskeletal: No joint pain, No Myalgias Skin: No Skin Lesions, No rash Neuro: No Weakness, No Numbness, + Dizziness, No Headache Psych: No Anxiety/Panic, No Depression Heme/Lymph: No Bruising, No Lymphadenopathy Endocrine: No Polyuria, No Polydipsia PMFSH Past Medical History Medical History Diabetes HTN (hypertension) SOB (shortness of breath) Social History Social History Alcohol intake: never Advance Directives: No Advance Directives Information Provided: No Physical Exam Vital Signs: Vital Signs: Last Vital Signs Temp 98.5 F 03/06/21 15:26 Pulse 113 H 03/06/21 16:45 Resp 24 H 03/06/21 16:45 BP 149/104 H 03/06/21 16:45 Pulse Ox 97 03/06/21 16:45 BMI result Body Mass Index 42.8 Appearance: Alert. Oriented X3. No acute distress. Eyes: Pupils equal, round and reactive to light. ENT: Pharynx normal. Neck: Normal inspection. Neck supple. +JVD CVS: Tachycardic regular rhythm, distant S1/S2, no muffled head sounds. Pulses normal. Respiratory: No respiratory distress. Breath sounds normal. Abdomen: Obese, Soft and nontender. +BS x4 Skin: Skin warm and dry. Normal skin color. Normal skin turgor. No rashes. Extremities: 1+ lower extremity edema. Neuro: Oriented X 3. No motor deficit. No sensory deficit. Course Course Course Narrative: 55 y/o male with known pericardial effusion, hx asthma, PNA who presents to the ER with worsening SOB & orthopnea x5-6 days along with intermittent chest tightness. Concern for worsening pericardial effusion and possible tamponade. At this time he is hemodynamically stable with BP 140s, HR 110s, SpO2 98. EKG with evidence of diffuse pericarditis. Will get STAT ECHO. Dr. Tracy aware. Reevaluation(s) Reevaluation #1: Lab workup showing white blood cell count 13.1. This is most likely due to viral pericarditis. Hold off on antibiotics for now. Chest x-ray showing significant cardiomegaly, in comparison to prior x-ray done in December this appears to be larger. ECHO done at the beside, Dr. Lozano present - concern for tamponade physiology. Spoke with Dr. No from Radiology for assessment of possible pericardiocentesis, he is requesting a CT scan to help quantify size/volume. This is ordered. Reevaluation #2: Patient immediately short of breath and gasping when he is laid flat in the CT scanner. Unable to the get the test performed. Spoke again with Dr. No who reports the patient is unable to get the procedure done unless he is able to lay flat. Spoke with Dr. Tracy, patient may require transfer to [facility] for further management and evaluation. Reevaluation #3: Spoke with [employer] at [facility] - they are recommending we proceed with the test being performed here given we have the resources to c omplete it. We will need to intubate the patient given his shortness of breath when lying flat. Dr. No is in agreement to perform the procedure today - To coordinate the case with Anesthesia, IR in the PACU for recovery. There are no ICU beds available at this time. Will plan to get the pericardiocentesis, recover in the PACU and then extubate. Anticipate patient will be admitted to [facility] postoperatively. Additional Reevaluation(s): Consent obtained from anesthesia, patient is going to the interventional radiology suite now for pericardiocentesis. Consultations Consultation #1: Cardiology - Dr. Tracy Consultation #2: IR - Dr. No Consultation #3: Anesthesia MDM - SOB/Dyspnea Lab Data Result diagrams: 03/06/21 13:42 03/06/21 13:42 Labs: Lab Results 03/06/21 03/06/21 03/06/21 Range/Units 13:42 13:42 13:42 WBC 13.1 H (4.8-10.8) X10*3/uL RBC 4.94 (4.60-5.80) X10*6/uL Hgb 13.4 L (14.0-18.0) g/dl Hct 42.0 (42.0-52.0) % MCV 85.0 (80.0-98.0) fL MCH 27.1 (27.0-33.0) pg MCHC 31.9 (31.0-36.0) g/dl RDW 13.3 (11.0-16.0) % Plt Count 340 (160-400) X10*3/uL MPV 11.6 (9.4-12.4) fL Immature Gran % (Auto) 0.7 H (0.0-0.4) % Neut % (Auto) 71.1 (45-73) % Lymph % (Auto) 18.0 L (20-40) % [place] % (Auto) 8.6 (2-11) % Eos % (Auto) 1.3 (0-4) % Baso % (Auto) 0.3 (0-2) % Lymph # (Auto) 2.4 (1.2-4.9) X10*3/uL [place] # (Auto) 1.1 (0.1-1.2) X10*3/uL Eos # (Auto) 0.2 (0.0-0.4) X10*3/uL Baso # (Auto) 0.0 (0.0-0.2) X10*3/uL Abs Immat Gran (auto) 0.09 H (0.00-0.03) X10*3/uL Absolute Neuts (auto) 9.3 H (2.0-8.3) x10*3/uL Absolute Nucleated RBC 0.000 (0.0-0.012) X10*3/uL Nucleated RBC % (auto) 0.0 (0.0-0.2) /100WBC PT (9.9-13.0) SEC INR (0.9-1.1) APTT (24.1-38.0) SEC Sodium 138 (135-145) mmol/L Potassium 4.1 (3.3-5.1) mmol/L Chloride 104 (96-108) mmol/L Carbon Dioxide 24 (22-29) mmol/L Anion Gap 14 (12-20) BUN 15 (9-16) mg/dL Creatinine 0.83 (0.5-1.4) mg/dL Estim Creat Clear Calc 148.4 Estimated GFR > 60 Random Glucose 209 H (60-115) mg/dL Calcium 9.5 (8.4-10.2) mg/dL Magnesium 2.2 (1.6-2.6) mg/dL Total Bilirubin 0.9 (0.0-1.0) mg/dL Direct Bilirubin 0.3 (0.0-0.5) mg/dL AST 16 D (5-37) U/L ALT 28 (0-40) U/L Alkaline Phosphatase 125 H D (39-117) U/L Troponin I High Sens 15.3 (<3.5-35.0) ng/L B-Natriuretic Peptide 45 (<100) pg/mL Total Protein 7.1 (6.5-8.0) g/dL Albumin 3.9 (3.5-5.0) g/dL TSH (0.32-4.0) uIU/mL Urine Color Urine Appearance Urine pH (5.0-8.0) Ur Specific [place] (1.005-1.025) Urine Protein (NEG-TRACE) MG/DL Urine Glucose (UA) (NEG) MG/DL Urine Ketones (NEG) MG/DL Urine Blood (NEG) Urine Nitrite (NEG) Ur Leukocyte Esterase (NEG) Urine RBC (0) /HPF Urine WBC (0-4) /HPF Ur Squamous Epith Cells /LPF Urine Bacteria /LPF Hyaline Casts /LPF COVID-19 (JOSE) (Negative) COVID-19 Clin Com 03/06/21 03/06/21 03/06/21 Range/Units 13:42 15:22 15:22 WBC (4.8-10.8) X10*3/uL RBC (4.60-5.80) X10*6/uL Hgb (14.0-18.0) g/dl Hct (42.0-52.0) % MCV (80.0-98.0) fL MCH (27.0-33.0) pg MCHC (31.0-36.0) g/dl RDW (11.0-16.0) % Plt Count (160-400) X10*3/uL MPV (9.4-12.4) fL Immature Gran % (Auto) (0.0-0.4) % Neut % (Auto) (45-73) % Lymph % (Auto) (20-40) % [place] % (Auto) (2-11) % Eos % (Auto) (0-4) % Baso % (Auto) (0-2) % Lymph # (Auto) (1.2-4.9) X10*3/uL [place] # (Auto) (0.1-1.2) X10*3/uL Eos # (Auto) (0.0-0.4) X10*3/uL Baso # (Auto) (0.0-0.2) X10*3/uL Abs Immat Gran (auto) (0.00-0.03) X10*3/uL Absolute Neuts (auto) (2.0-8.3) x10*3/uL Absolute Nucleated RBC (0.0-0.012) X10*3/uL Nucleated RBC % (auto) (0.0-0.2) /100WBC PT (9.9-13.0) SEC INR (0.9-1.1) APTT (24.1-38.0) SEC Sodium (135-145) mmol/L Potassium (3.3-5.1) mmol/L Chloride (96-108) mmol/L Carbon Dioxide (22-29) mmol/L Anion Gap (12-20) BUN (9-16) mg/dL Creatinine (0.5-1.4) mg/dL Estim Creat Clear Calc Estimated GFR Random Glucose (60-115) mg/dL Calcium (8.4-10.2) mg/dL Magnesium (1.6-2.6) mg/dL Total Bilirubin (0.0-1.0) mg/dL Direct Bilirubin (0.0-0.5) mg/dL AST (5-37) U/L ALT (0-40) U/L Alkaline Phosphatase (39-117) U/L Troponin I High Sens (<3.5-35.0) ng/L B-Natriuretic Peptide (<100) pg/mL Total Protein (6.5-8.0) g/dL Albumin (3.5-5.0) g/dL TSH 1.54 (0.32-4.0) uIU/mL Urine Color YELLOW Urine Appearance CLEAR Urine pH 5.5 (5.0-8.0) Ur Specific [place] >= 1.030 H (1.005-1.025) Urine Protein 2+ H (NEG-TRACE) MG/DL Urine Glucose (UA) >=1000 H (NEG) MG/DL Urine Ketones 15 (NEG) MG/DL Urine Blood 1+ H (NEG) Urine Nitrite NEG (NEG) Ur Leukocyte Esterase NEG (NEG) Urine RBC 1-4 (0) /HPF Urine WBC 0-2 (0-4) /HPF Ur Squamous Epith Cells TRACE /LPF Urine Bacteria TRACE /LPF Hyaline Casts 0-2 /LPF COVID-19 (JOSE) Negative (Negative) COVID-19 Clin Com See Note 03/06/21 Range/Units 15:48 WBC (4.8-10.8) X10*3/uL RBC (4.60-5.80) X10*6/uL Hgb (14.0-18.0) g/dl Hct (42.0-52.0) % MCV (80.0-98.0) fL MCH (27.0-33.0) pg MCHC (31.0-36.0) g/dl RDW (11.0-16.0) % Plt Count (160-400) X10*3/uL MPV (9.4-12.4) fL Immature Gran % (Auto) (0.0-0.4) % Neut % (Auto) (45-73) % Lymph % (Auto) (20-40) % [place] % (Auto) (2-11) % Eos % (Auto) (0-4) % Baso % (Auto) (0-2) % Lymph # (Auto) (1.2-4.9) X10*3/uL [place] # (Auto) (0.1-1.2) X10*3/uL Eos # (Auto) (0.0-0.4) X10*3/uL Baso # (Auto) (0.0-0.2) X10*3/uL Abs Immat Gran (auto) (0.00-0.03) X10*3/uL Absolute Neuts (auto) (2.0-8.3) x10*3/uL Absolute Nucleated RBC (0.0-0.012) X10*3/uL Nucleated RBC % (auto) (0.0-0.2) /100WBC PT 12.8 (9.9-13.0) SEC INR 1.1 (0.9-1.1) APTT 35.8 (24.1-38.0) SEC Sodium (135-145) mmol/L Potassium (3.3-5.1) mmol/L Chloride (96-108) mmol/L Carbon Dioxide (22-29) mmol/L Anion Gap (12-20) BUN (9-16) mg/dL Creatinine (0.5-1.4) mg/dL Estim Creat Clear Calc Estimated GFR Random Glucose (60-115) mg/dL Calcium (8.4-10.2) mg/dL Magnesium (1.6-2.6) mg/dL Total Bilirubin (0.0-1.0) mg/dL Direct Bilirubin (0.0-0.5) mg/dL AST (5-37) U/L ALT (0-40) U/L Alkaline Phosphatase (39-117) U/L Troponin I High Sens (<3.5-35.0) ng/L B-Natriuretic Peptide (<100) pg/mL Total Protein (6.5-8.0) g/dL Albumin (3.5-5.0) g/dL TSH (0.32-4.0) uIU/mL Urine Color Urine Appearance Urine pH (5.0-8.0) Ur Specific [place] (1.005-1.025) Urine Protein (NEG-TRACE) MG/DL Urine Glucose (UA) (NEG) MG/DL Urine Ketones (NEG) MG/DL Urine Blood (NEG) Urine Nitrite (NEG) Ur Leukocyte Esterase (NEG) Urine RBC (0) /HPF Urine WBC (0-4) /HPF Ur Squamous Epith Cells /LPF Urine Bacteria /LPF Hyaline Casts /LPF COVID-19 (JOSE) (Negative) COVID-19 Clin Com ECG Data Attestation: I personally reviewed and interpreted this ECG as follows: ECG interpretation date: 03/06/21 Prior ECG tracings: available for review Interpretation: Sinus tachycardia, diffuse ST elevations consistent with acute pericarditis, heart rate 114 beats per minute Critical Care Time Critical Care Time Critical Care Time: Yes Total Critical Care Time: 65 Attestation: I have personally provided critical care time exclusive of time spent on separately billable procedures. Time includes review of lab data, radiology results, discussion with consultants, and monitoring for potential decompensation. Intervention performed as documented. Discharge Plan Discharge Clinical Impression: Pericardial effusion, Pericardial tamponade Patient Disposition: Admitted As Inpatient
--- NOTE | 2021-03-06 13:05 | CA_ITS ---
Transthoracic Echocardiogram Patient (Last, First, Middle): Jay Mays, Gender: Male Date of : 1965 Age: 55 Procedure Date: 03/06/2021 Procedure Type: Transthoracic Echocardiogram Location: ER Height: 187.96 cm Weight: kg Graphics Manager: Referring MD: Latonia ZALDIVAR Symptoms: pericardial effusion, pericarditis Study Quality: Fair ECG Rhythm: Sinus Conclusions: - Normal left ventricular size and systolic function. - Normal right ventricular cavity size and systolic function. - There is a large circumferential pericardial effusion. There are echocardiographic findings consistent with tamponade physiology. There is excessive respiratory variation of the mitral valve Doppler velocities. Findings Left Ventricle Normal left ventricular size and systolic function. The visually estimated ejection fraction is between 60-65%. There is evidence of regional wall motion abnormalities. Right Ventricle Normal right ventricular cavity size and systolic function. Venous The inferior vena cava is dilated and does not collapse with inspiration. Pericardium/Pleural There is a large circumferential pericardial effusion. There are echocardiographic findings consistent with tamponade physiology. There is excessive respiratory variation of the mitral valve Doppler velocities. Prior Study Comparison Changes noted compared to prior study dated: 01/23/2021. Pericardial effusion is larger. Tamponade physiology is present. Measurements 2D Linear Measurements IVSd: 1.74 0.6-0.9/0.6-1.0 cm LVIDd: 5.18 3.9-5.3/4.2-5.9 cm LVIDs: 3.98 2.0-3.6 cm LVPWd: 1.47 0.7-1.1 cm LV Mass: 469.66 67-162/88-224 g Updated in Other Vendor System with Status of Final Felix Tracy MD electronically signed on 03/06/2021 7:54:23 PM with status of Final
[2021-03-06 13:49] LABS: MANUAL DIFF FLAG NO
[2021-03-06 13:55] LABS: Basophils Percent Auto 0.3 % (0-2); Eosinophils Absolute Auto 0.2 X10*3/uL (0.0-0.4); Eosinophils Percent Auto 1.3 % (0-4); Hemoglobin 13.4 g/dl (14.0-18.0); Imm Gran Abs Auto 0.09 X10*3/uL (0.00-0.03); Imm Gran Pct Auto 0.7 % (0.0-0.4); Lymphocytes Absolute Auto 2.4 X10*3/uL (1.2-4.9); Mean Corpuscular HGB Conc 31.9 g/dl (31.0-36.0); Mean Corpuscular Hemoglobin 27.1 pg (27.0-33.0); Mean Platelet Volume 11.6 fL (9.4-12.4); Monocytes Absolute Auto 1.1 X10*3/uL (0.1-1.2); Monocytes Percent Auto 8.6 % (2-11); Neutrophils Absolute Auto 9.3 x10*3/uL (2.0-8.3); Neutrophils Percent Auto 71.1 % (45-73); Platelet Count 340 X10*3/uL (160-400); Red Blood Count 4.94 X10*6/uL (4.60-5.80); Red Cell Distribution Width 13.3 % (11.0-16.0); White Blood Count 13.1 X10*3/uL (4.8-10.8)
[2021-03-06 14:05] LABS: Alanine Aminotransferase 28 U/L (0-40); Albumin Level 3.9 g/dL (3.5-5.0); Alkaline Phosphatase 125 U/L (39-117); Anion Gap 14 (12-20); Aspartate Amino Transferase 16 U/L (5-37); Bilirubin Direct 0.3 mg/dL (0.0-0.5); Bilirubin Total 0.9 mg/dL (0.0-1.0); Blood Urea Nitrogen 15 mg/dL (9-16); Calcium 9.5 mg/dL (8.4-10.2); Carbon Dioxide 24 mmol/L (22-29); Chloride 104 mmol/L (96-108); Creatinine Clr Calc Pharmacy 148.4; Estimated Glomerular Filt Rate > 60; Glucose Random 209 mg/dL (60-115); Magnesium 2.2 mg/dL (1.6-2.6); Potassium 4.1 mmol/L (3.3-5.1); Sodium 138 mmol/L (135-145); Total Protein 7.1 g/dL (6.5-8.0)
[2021-03-06 14:14] LABS: B Type Natriuretic Peptide 45 pg/mL (<100); Troponin-I High Sensitivity 15.3 ng/L (<3.5-35.0)
[2021-03-06 14:28] LABS: TSH reflex Free T4 1.54 uIU/mL (0.32-4.0)
--- NOTE | 2021-03-06 14:42 | PM.CNCAR ---
History of Present Illness History of Present Illness Date of Service: 03/06/21 Requesting physician: Latonia Koch Chief complaint: pericardial tamponade Narrative: 55-year-old gentleman who has background of asthma who is presenting with shortness of breath, dizziness and orthopnea. In December he presented to [facility] with asthma exacerbation at that time had cardiomegaly on chest x-ray. Echocardiography was performed which showed moderate pericardial effusion. He left AMA at that stage. He is now presenting with shortness of breath, orthopnea and dizziness. He said he almost passed out last night. He is tachycardic but holding his blood pressure on his own. Echocardiography is showing large pericardial effusion with clear signs of pericardial tamponade. [facility] Past Medical History Medical History Diabetes HTN (hypertension) SOB (shortness of breath) Social History Social History Alcohol intake: never Advance Directives: No Advance Directives Information Provided: No Meds Allergies Allergy/AdvReac Type Severity Reaction Status Date / Time cinnamon [CINNAMON] Allergy Severe ANAPHYLAXIS Verified 01/23/21 13:00 Penicillins Allergy Mild FAINTING Verified 01/23/21 13:00 penicillin V Allergy Unknown Unconscious Verified 01/23/21 13:00 Home Medications Medication Instructions Recorded Confirmed Last Taken Type albuterol sulfate 90 mcg/actuation 2 puff INHALATION Q4-6H PRN 01/23/21 01/23/21 Unknown History aerosol inhaler aspirin 81 mg chewable tablet 81 mg PO DAILY 01/23/21 01/23/21 01/22/21 History fluticasone propionate 50 1 spray INTRANASAL DAILY PRN 01/23/21 01/23/21 01/22/21 History mcg/actuation nasal spray,suspension insulin glargine 100 unit/mL (3 18 unit SUBCUT DAILY 01/23/21 01/23/21 01/22/21 History mL) subcutaneous pen (Lantus Solostar U-100 Insulin) insulin glargine 100 unit/mL (3 22 unit SUBCUT DAILY@1200 01/23/21 01/23/21 01/22/21 History mL) subcutaneous pen (Lantus Solostar U-100 Insulin) insulin lispro 100 unit/mL 17 unit SUBCUT DAILY@0700 01/23/21 01/23/21 01/22/21 History subcutaneous pen (Humalog KwikPen (U-100) Insulin) insulin lispro 100 unit/mL 21 unit SUBCUT DAILY@1100 01/23/21 01/23/21 01/22/21 History subcutaneous pen (Humalog KwikPen (U-100) Insulin) insulin lispro 100 unit/mL 38 unit SUBCUT DAILY@1700 01/23/21 01/23/21 01/22/21 History subcutaneous pen (Humalog KwikPen (U-100) Insulin) loratadine 5 mg/5 mL oral solution 10 ml PO DAILY PRN 01/23/21 01/23/21 Unknown History multivitamin 1 tab PO DAILY 01/23/21 01/23/21 01/22/21 History oxycodone-acetaminophen 5 mg-325 1 tab PO Q12H 01/23/21 01/23/21 Unknown History mg tablet Physical Exam Vital Signs: Vital Signs: Last Vital Signs Temp 99.1 F 03/06/21 12:48 Pulse 116 H 03/06/21 13:15 Resp 22 H 03/06/21 13:15 BP 143/89 H 03/06/21 13:15 Pulse Ox 97 03/06/21 13:15 BMI result Body Mass Index 42.8 GENERAL APPEARANCE: in no acute distress, obese. NECK: no carotid bruit, no significant jugular venous distention. SKIN: no suspicious lesions, warm and dry. HEART: no murmurs, regular tachycardia. LUNGS: clear to auscultation anteriorly. Few crackles at bases. ABDOMEN: soft, nontender. EXTREMITIES: no edema. PERIPHERAL PULSES: equal. NEUROLOGIC: No gross deficits, AAO X 3 Objective Labs and Meds Result diagrams: 03/06/21 13:42 03/06/21 13:42 Lab results: Laboratory Results - last 24 hr 03/06/21 03/06/21 03/06/21 13:42 13:42 13:42 WBC 13.1 H RBC 4.94 Hgb 13.4 L Hct 42.0 MCV 85.0 MCH 27.1 MCHC 31.9 RDW 13.3 Plt Count 340 MPV 11.6 Immature Gran % (Auto) 0.7 H Neut % (Auto) 71.1 Lymph % (Auto) 18.0 L [place] % (Auto) 8.6 Eos % (Auto) 1.3 Baso % (Auto) 0.3 Lymph # (Auto) 2.4 [place] # (Auto) 1.1 Eos # (Auto) 0.2 Baso # (Auto) 0.0 Abs Immat Gran (auto) 0.09 H Absolute Neuts (auto) 9.3 H Absolute Nucleated RBC 0.000 Nucleated RBC % (auto) 0.0 Sodium 138 Potassium 4.1 Chloride 104 Carbon Dioxide 24 Anion Gap 14 BUN 15 Creatinine 0.83 Estim Creat Clear Calc 148.4 Estimated GFR > 60 Random Glucose 209 H Calcium 9.5 Magnesium 2.2 Total Bilirubin 0.9 Direct Bilirubin 0.3 AST 16 D ALT 28 Alkaline Phosphatase 125 H D Troponin I High Sens 15.3 B-Natriuretic Peptide 45 Total Protein 7.1 Albumin 3.9 TSH 03/06/21 13:42 WBC RBC Hgb Hct MCV MCH MCHC RDW Plt Count MPV Immature Gran % (Auto) Neut % (Auto) Lymph % (Auto) [place] % (Auto) Eos % (Auto) Baso % (Auto) Lymph # (Auto) [place] # (Auto) Eos # (Auto) Baso # (Auto) Abs Immat Gran (auto) Absolute Neuts (auto) Absolute Nucleated RBC Nucleated RBC % (auto) Sodium Potassium Chloride Carbon Dioxide Anion Gap BUN Creatinine Estim Creat Clear Calc Estimated GFR Random Glucose Calcium Magnesium Total Bilirubin Direct Bilirubin AST ALT Alkaline Phosphatase Troponin I High Sens B-Natriuretic Peptide Total Protein Albumin TSH 1.54 Imaging Radiologist's impression: Impressions Chest X-Ray 03/06/21 13:35 IMPRESSION: Biventricular cardiomegaly. No acute process seen. Assessment and Plan (1) Pericardial tamponade: Status: Acute (2) Pericardial effusion: Status: Acute Pleasant 55 gentleman who is presenting with shortness of breath, dizziness and tachycardia. He had moderate pericardial effusion December. Echocardiography is showing moderate to large-sized pericardial effusion with clear signs of pericardial tamponade. His IVC is plethoric and not dilating. He clearly has mitral inflow variability. I think he needs to have pericardiocentesis. We will arrange it in our institution and if he could not do it here then we will transfer her to [facility]. EKGs clearly showing signs of pericarditis. Please start him on colchicine 0.6 mg twice a day. Due to his asthma I would avoid NSAIDs. If you have any questions then please reach out to us. Thank you for allowing me to participate in the care of your patient. Please feel free to contact me if you have any questions. Procedures Date of Service Date of Service: 03/06/21
[2021-03-06] MEDS: 0.9 % Sodium Chloride 1,000 ML 999 ML IVCONT (15:36)
[2021-03-06 15:41] LABS: Appearance Urine CLEAR; Color Urine YELLOW; Glucose Urine UA >=1000 MG/DL (NEG); Leukocyte Esterase Urine NEG (NEG); Nitrite Urine NEG (NEG); PH 5.5 (5.0-8.0); Specific Gravity - Urine >= 1.030 (1.005-1.025); UACC Culture Trigger NO; Urine Blood 1+ (NEG); Urine Ketones 15 MG/DL (NEG); Urine Protein 2+ MG/DL (NEG-TRACE)
[2021-03-06 15:54] LABS: Bacteria Urine TRACE /LPF; Squamous Epithelial Cell Urine TRACE /LPF; WBC Urine 0-2 /HPF (0-4)
[2021-03-06 15:55] LABS: Hyaline Casts Urine 0-2 /LPF
[2021-03-06 15:59] LABS: COVID-19 Test Negative (Negative)
[2021-03-06 16:00] LABS: INTERNATIONAL NORM RATIO 1.1 (0.9-1.1); Prothrombin Time 12.8 SEC (9.9-13.0)
[2021-03-06 16:02] LABS: Partial Thromboplastin Time 35.8 SEC (24.1-38.0)
--- NOTE | 2021-03-06 16:25 | PC.NURSE ---
PT WAS UNABLE TO TOLERATE SUPINE POSITIONING FOR HIS CTSCAN. HE HAS A PLANNED IR PROCEDURE TO ADDRESS THE EXTENSIVE PERICARDIAL EFFUSION
--- NOTE | 2021-03-06 16:48 | PC.NURSE ---
PT TAKEN VIA STRETCHER FOR HIS PROCEDURE WITH ANESTHESIA TEAM.
--- NOTE | 2021-03-06 17:16 | HO.ANESPROP2 ---
[facility] Active Problems Active Problems: All Active Problems (Updated 03/06/21 @ 15:11 by ZEN Mar) Pericardial tamponade (Acute) Pericardial effusion (Acute) Past Medical History Medical History Diabetes HTN (hypertension) SOB (shortness of breath) Family History Family history of problems with anesthesia: No Surgical History History of Problems with Anesthesia: No Social History Social History Alcohol intake: never Advance Directives: No Advance Directives Information Provided: No Meds Allergies Allergy/AdvReac Type Severity Reaction Status Date / Time cinnamon [CINNAMON] Allergy Severe ANAPHYLAXIS Verified 01/23/21 13:00 Penicillins Allergy Mild FAINTING Verified 01/23/21 13:00 penicillin V Allergy Unknown Unconscious Verified 01/23/21 13:00 Home Medications Medication Instructions Recorded Confirmed Last Taken Type albuterol sulfate 90 mcg/actuation 2 puff INHALATION Q4-6H PRN 01/23/21 01/23/21 Unknown History aerosol inhaler aspirin 81 mg chewable tablet 81 mg PO DAILY 01/23/21 01/23/21 01/22/21 History fluticasone propionate 50 1 spray INTRANASAL DAILY PRN 01/23/21 01/23/21 01/22/21 History mcg/actuation nasal spray,suspension insulin glargine 100 unit/mL (3 18 unit SUBCUT DAILY 01/23/21 01/23/21 01/22/21 History mL) subcutaneous pen (Lantus Solostar U-100 Insulin) insulin glargine 100 unit/mL (3 22 unit SUBCUT DAILY@1200 01/23/21 01/23/21 01/22/21 History mL) subcutaneous pen (Lantus Solostar U-100 Insulin) insulin lispro 100 unit/mL 17 unit SUBCUT DAILY@0700 01/23/21 01/23/21 01/22/21 History subcutaneous pen (Humalog KwikPen (U-100) Insulin) insulin lispro 100 unit/mL 21 unit SUBCUT DAILY@1100 01/23/21 01/23/21 01/22/21 History subcutaneous pen (Humalog KwikPen (U-100) Insulin) insulin lispro 100 unit/mL 38 unit SUBCUT DAILY@1700 01/23/21 01/23/21 01/22/21 History subcutaneous pen (Humalog KwikPen (U-100) Insulin) loratadine 5 mg/5 mL oral solution 10 ml PO DAILY PRN 01/23/21 01/23/21 Unknown History multivitamin 1 tab PO DAILY 01/23/21 01/23/21 01/22/21 History oxycodone-acetaminophen 5 mg-325 1 tab PO Q12H 01/23/21 01/23/21 Unknown History mg tablet Exam Exam Date and Time: March 06, 2021 171 Height,Weight and Vital Signs: Height 6 ft 1 in Weight 147.418 kg Last Vital Signs Temp 98.5 F 03/06/21 15:26 Pulse 113 H 03/06/21 16:45 Resp 24 H 03/06/21 16:45 BP 149/104 H 03/06/21 16:45 Pulse Ox 97 03/06/21 16:45 Pertinent Lab Results Pertinent Lab Results: Laboratory Tests 03/06/21 03/06/21 03/06/21 13:42 13:42 13:42 WBC 13.1 H RBC 4.94 Hgb 13.4 L Hct 42.0 MCV 85.0 MCH 27.1 MCHC 31.9 RDW 13.3 Plt Count 340 MPV 11.6 Immature Gran % (Auto) 0.7 H Neut % (Auto) 71.1 Lymph % (Auto) 18.0 L Wet[place] % (Auto) 8.6 Eos % (Auto) 1.3 Baso % (Auto) 0.3 Lymph # (Auto) 2.4 Wetzel # (Auto) 1.1 Eos # (Auto) 0.2 Baso # (Auto) 0.0 Abs Immat Gran (auto) 0.09 H Absolute Neuts (auto) 9.3 H Absolute Nucleated RBC 0.000 Nucleated RBC % (auto) 0.0 PT INR APTT Sodium 138 Potassium 4.1 Chloride 104 Carbon Dioxide 24 Anion Gap 14 BUN 15 Creatinine 0.83 Estim Creat Clear Calc 148.4 Estimated GFR > 60 Random Glucose 209 H Calcium 9.5 Magnesium 2.2 Total Bilirubin 0.9 Direct Bilirubin 0.3 AST 16 D ALT 28 Alkaline Phosphatase 125 H D Troponin I High Sens 15.3 B-Natriuretic Peptide 45 Total Protein 7.1 Albumin 3.9 TSH Urine Color Urine Appearance Urine pH Ur Specific [place] Urine Protein Urine Glucose (UA) Urine Ketones Urine Blood Urine Nitrite Ur Leukocyte Esterase Urine RBC Urine WBC Ur Squamous Epith Cells Urine Bacteria Hyaline Casts COVID-19 (JOSE) COVID-19 Clin Com 03/06/21 03/06/21 03/06/21 13:42 15:22 15:22 WBC RBC Hgb Hct MCV MCH MCHC RDW Plt Count MPV Immature Gran % (Auto) Neut % (Auto) Lymph % (Auto) [place] % (Auto) Eos % (Auto) Baso % (Auto) Lymph # (Auto) Wetzel # (Auto) Eos # (Auto) Baso # (Auto) Abs Immat Gran (auto) Absolute Neuts (auto) Absolute Nucleated RBC Nucleated RBC % (auto) PT INR APTT Sodium Potassium Chloride Carbon Dioxide Anion Gap BUN Creatinine Estim Creat Clear Calc Estimated GFR Random Glucose Calcium Magnesium Total Bilirubin Direct Bilirubin AST ALT Alkaline Phosphatase Troponin I High Sens B-Natriuretic Peptide Total Protein Albumin TSH 1.54 Urine Color YELLOW Urine Appearance CLEAR Urine pH 5.5 Ur Specific [place] >= 1.030 H Urine Protein 2+ H Urine Glucose (UA) >=1000 H Urine Ketones 15 Urine Blood 1+ H Urine Nitrite NEG Ur Leukocyte Esterase NEG Urine RBC 1-4 Urine WBC 0-2 Ur Squamous Epith Cells TRACE Urine Bacteria TRACE Hyaline Casts 0-2 COVID-19 (JOSE) Negative COVID-19 Clin Com See Note 03/06/21 15:48 WBC RBC Hgb Hct MCV MCH MCHC RDW Plt Count MPV Immature Gran % (Auto) Neut % (Auto) Lymph % (Auto) [place] % (Auto) Eos % (Auto) Baso % (Auto) Lymph # (Auto) [place] # (Auto) Eos # (Auto) Baso # (Auto) Abs Immat Gran (auto) Absolute Neuts (auto) Absolute Nucleated RBC Nucleated RBC % (auto) PT 12.8 INR 1.1 APTT 35.8 Sodium Potassium Chloride Carbon Dioxide Anion Gap BUN Creatinine Estim Creat Clear Calc Estimated GFR Random Glucose Calcium Magnesium Total Bilirubin Direct Bilirubin AST ALT Alkaline Phosphatase Troponin I High Sens B-Natriuretic Peptide Total Protein Albumin TSH Urine Color Urine Appearance Urine pH Ur Specific [place] Urine Protein Urine Glucose (UA) Urine Ketones Urine Blood Urine Nitrite Ur Leukocyte Esterase Urine RBC Urine WBC Ur Squamous Epith Cells Urine Bacteria Hyaline Casts COVID-19 (JOSE) COVID-19 Clin Com Airway Mallampati Class: IV TM Dist: >3cm Neck ROM: Full Assessment and Plan Assessment Anesthesia Assessment: Anesthesia Plan Discussed and Chart Reviewed Final Anesthetic Review Family History of Problems with Anesthesia: No History of Problems with Anesthesia: No NPO: Yes ASA Class: III and Emergency Final Preanesthetic Review: Meds/Allgs Chart Reviewed, Consent Obtained/Reviewed and Anes Risks/Benef Reviewed Patient Risk: Intermediate Procedure Risk: Intermediate Anesthetic Plan Anesthetic Plan: GA Disposition: Inp. Admit - [facility]MC
[2021-03-06] MEDS: fentaNYL citrate/PF 100 MCG/2 ML VIAL IVPUSH (18:58)
[2021-03-06 19:43] LABS: MANUAL DIFF FLAG NO
[2021-03-06 19:44] LABS: Basophils Percent Auto 0.2 % (0-2); Eosinophils Absolute Auto 0.1 X10*3/uL (0.0-0.4); Eosinophils Percent Auto 0.8 % (0-4); Hematocrit 36.5 % (42.0-52.0); Hemoglobin 11.5 g/dl (14.0-18.0); Imm Gran Abs Auto 0.18 X10*3/uL (0.00-0.03); Imm Gran Pct Auto 1.2 % (0.0-0.4); Lymphocytes Absolute Auto 1.4 X10*3/uL (1.2-4.9); Lymphocytes Percent Auto 9.2 % (20-40); Mean Corpuscular HGB Conc 31.5 g/dl (31.0-36.0); Mean Corpuscular Hemoglobin 27.3 pg (27.0-33.0); Mean Corpuscular Volume 86.5 fL (80.0-98.0); Monocytes Absolute Auto 0.9 X10*3/uL (0.1-1.2); Monocytes Percent Auto 5.9 % (2-11); Neutrophils Absolute Auto 12.3 x10*3/uL (2.0-8.3); Neutrophils Percent Auto 82.7 % (45-73); Platelet Count 289 X10*3/uL (160-400); Red Blood Count 4.22 X10*6/uL (4.60-5.80); Red Cell Distribution Width 13.4 % (11.0-16.0); White Blood Count 14.9 X10*3/uL (4.8-10.8)
[2021-03-06 20:00] LABS: Lactic Acid 1.1 mmol/L (0.5-2.0)
[2021-03-06 20:03] LABS: B Type Natriuretic Peptide 59 pg/mL (<100)
[2021-03-06 20:08] LABS: Anion Gap 16 (12-20); Blood Urea Nitrogen 16 mg/dL (9-16); Calcium 7.8 mg/dL (8.4-10.2); Carbon Dioxide 17 mmol/L (22-29); Chloride 110 mmol/L (96-108); Estimated Glomerular Filt Rate > 60; Glucose Random 349 mg/dL (60-115); Magnesium 1.7 mg/dL (1.6-2.6); Phosphorus 4.6 mg/dL (2.7-4.5); Potassium 4.6 mmol/L (3.3-5.1); Sodium 138 mmol/L (135-145)
--- NOTE | 2021-03-06 20:30 | P.CONCC_ITS ---
History of Present Illness Data of Consult Service Date: 03/06/21 Requesting physician: Ludin Robbins Primary Care Provider: Pepper Cosme MD HPI Mr. Mays is being transferred to [facility] because of a bleeding pericardial effusion with hypotension, presumably 2? tamponade. The patient is a 55-year-old male with a history of DM on insulin, KYLE, HTN, and obesity.? He has no h/o renal disease.? According to our records, he has no h/o bleeding diathesis or TB that we know of, but far as I know, he was not asked about those specifically. Six weeks ago, on January 23, the patient presented to the ED complaining of shortness of breath, chest pains, body aches and pains, we and weakness. ?He was hemodynamically stable, in fact hypertensive.? Sat was 96% on room air.? COVID test was negative.? Lungs were clear.? The cardiac silhouette was enlarged in particular the right heart.? The radiologist suggested that pericardial effusion should be considered.? Before further workup could be done, the patient signed out of the emergency department AMA.? He had no further medical workup in the interim, as far as we know. The patient presented again to the ED today with similar symptoms but worse, especially over the last 5-6 days.? Patient reported that he was unable to sleep at all last night because of shortness of breath and difficulty breathing.? He states he has had to sleep with several pillows due to shortness of breath.? He has had intermittent chest tightness and squeezing sensation along with shortness of breath episodes.? He also endoses lightheadedness, dizziness and feeling like he was going to pass out. He has had also had a cough and some phlegm production. Workup in the ED showed white count of 13, hemoglobin of 13, platelet count of 340,000.? Coags were normal.? Chemistries were unremarkable, including a BUN/creatinine of 15/0.8.? Glucose was 209.? High sensitivity troponin was normal.? BNP was normal.? Chest x-ray was similar to the last one.? No acute pulmonary disease was seen. Transthoracic ECHO showed normal left ventricular size and systolic function, with severely increased left ventricular wall thickness.? There was normal right ventricular cavity size and systolic function.? There was a moderate circumferential pericardial effusion.? The vena cava was dilated with reduced respiratory variability.? On the echo, there was no definitive sign of cardiac tamponade. The patient was taken to CT scan for pericardial drainage by invasive Radiology.? The patient was in mild respiratory distress and was unable to lie flat and therefore was intubated for the procedure.? During the procedure the patient was hemodynamically stable.? According to the invasive radiologist (Dr. No) the needle went directly into the pericardium and there was no chance that he perforated the heart.? A 6.5 Pashto drainage catheter was placed.? The patient was completely hemodynamically stable during the procedure.? Because blood continued to come out of the catheter and because the patient appeared to be a difficult intubation, it was decided to admit the patient to the ICU for overnight monitoring. Because the ICU was full, the patient was taken to the PACU following the procedure.? In the PACU, the patient drained 1500 cc of what looks like blood from the pericardial catheter over the first two hours.? At one point, he was tachycardic and he became hypotensive with a blood pressure in the 70s. I was called in and immediately echoed the patient at that point.? Image quality on my echo was fair.? My echoed clearly showed normal LV function with a small mini LV cavity.? The RV look flattened in multiple views.? In the subcostal view it appeared that there was a large collection sitting above the flattened RV free wall.? The IVC was dilated to 2.4 cm with no respiratory variation during positive pressure ventilation. I called the [facility] transfer line and spoke with Dr. Mayes from cardiothoracic surgery.? We have arranged for transfer directly to the operating room. F/U labs from the PACU:? Hemoglobin is down to 11.5, BUN/creatinine are 16/1.0, bicarb is down to 17, lactic acid is 1.1. Critical care time:? 2+ hours. [facility] Past Medical History Medical History Diabetes HTN (hypertension) SOB (shortness of breath) Social History Social History Alcohol intake: never Advance Directives: No Advance Directives Information Provided: No Meds Allergies Allergy/AdvReac Type Severity Reaction Status Date / Time cinnamon [CINNAMON] Allergy Severe ANAPHYLAXIS Verified 01/23/21 13:00 Penicillins Allergy Mild FAINTING Verified 01/23/21 13:00 penicillin V Allergy Unknown Unconscious Verified 01/23/21 13:00 Active Medications: Current Medications Albuterol Sulfate (Albuterol Sulfate (0.083%) 2.5 Mg/3 Ml Vial.Neb) 2.5 mg INHALE ONCE PRN PRN Reason: Wheezing Fentanyl (Fentanyl Citrate/Pf 100 Mcg/2 Ml Vial) 50 mcg IVPUSH Q5M PRN; Protocol PRN Reason: Pain, Severe (Pain Scale 7-10) Sodium Chloride (Ns) 1,000 mls @ 100 mls/hr IVCONT .Q10H ESDRAS Propofol (Diprivan) 1,000 mg in 100 mls @ 0 mls/hr IVCONT .Q0M ESDRAS; Protocol Ondansetron HCl (Ondansetron Hcl 4 Mg/2 Ml Vial) 4 mg IVPUSH ONCE PRN PRN Reason: Nausea and Vomiting Home Medications Medication Instructions Recorded Confirmed Last Taken Type albuterol sulfate 90 mcg/actuation 2 puff INHALATION Q4-6H PRN 01/23/21 01/23/21 Unknown History aerosol inhaler aspirin 81 mg chewable tablet 81 mg PO DAILY 01/23/21 01/23/21 01/22/21 History fluticasone propionate 50 1 spray INTRANASAL DAILY PRN 01/23/21 01/23/21 01/22/21 History mcg/actuation nasal spray,suspension insulin glargine 100 unit/mL (3 18 unit SUBCUT DAILY 01/23/21 01/23/21 01/22/21 History mL) subcutaneous pen (Lantus Solostar U-100 Insulin) insulin glargine 100 unit/mL (3 22 unit SUBCUT DAILY@1200 01/23/21 01/23/21 01/22/21 History mL) subcutaneous pen (Lantus Solostar U-100 Insulin) insulin lispro 100 unit/mL 17 unit SUBCUT DAILY@0700 01/23/21 01/23/21 01/22/21 History subcutaneous pen (Humalog KwikPen (U-100) Insulin) insulin lispro 100 unit/mL 21 unit SUBCUT DAILY@1100 01/23/21 01/23/21 01/22/21 History subcutaneous pen (Humalog KwikPen (U-100) Insulin) insulin lispro 100 unit/mL 38 unit SUBCUT DAILY@1700 01/23/21 01/23/21 01/22/21 History subcutaneous pen (Humalog KwikPen (U-100) Insulin) loratadine 5 mg/5 mL oral solution 10 ml PO DAILY PRN 01/23/21 01/23/21 Unknown History multivitamin 1 tab PO DAILY 01/23/21 01/23/21 01/22/21 History oxycodone-acetaminophen 5 mg-325 1 tab PO Q12H 01/23/21 01/23/21 Unknown History mg tablet Physical Exam Vital Signs: Vital Signs: Last Vital Signs Temp 98.5 F 03/06/21 15:26 Pulse 113 H 03/06/21 16:45 Resp 24 H 03/06/21 16:45 BP 149/104 H 03/06/21 16:45 Pulse Ox 97 03/06/21 16:45 BMI result Body Mass Index 42.8 Results Labs CBC & Chem 7: 03/06/21 19:37 03/06/21 19:37 Labs: Short CBC 03/06/21 03/06/21 Range/Units 13:42 19:37 WBC 13.1 H 14.9 H (4.8-10.8) X10*3/uL Hgb 13.4 L 11.5 L (14.0-18.0) g/dl Hct 42.0 36.5 L (42.0-52.0) % Plt Count 340 289 (160-400) X10*3/uL BMP 03/06/21 03/06/21 13:42 19:37 Sodium 138 138 Potassium 4.1 4.6 Chloride 104 110 H Carbon Dioxide 24 17 L BUN 15 16 Creatinine 0.83 1.01 Calcium 9.5 7.8 L D Liver Function 03/06/21 Range/Units 13:42 Total Bilirubin 0.9 (0.0-1.0) mg/dL Direct Bilirubin 0.3 (0.0-0.5) mg/dL AST 16 D (5-37) U/L ALT 28 (0-40) U/L Alkaline Phosphatase 125 H D (39-117) U/L Albumin 3.9 (3.5-5.0) g/dL Urine 03/06/21 Range/Units 15:22 Urine Color YELLOW Urine Appearance CLEAR Urine pH 5.5 (5.0-8.0) Ur Specific [place] >= 1.030 H (1.005-1.025) Urine Protein 2+ H (NEG-TRACE) MG/DL Urine Glucose (UA) >=1000 H (NEG) MG/DL Critical Care Time Critical Care Time (minutes): 120
--- NOTE | 2021-03-06 21:07 | PC.NURSE ---
1858 100 mcg Fentanyl given to patient verbal order per dr. kang to allow vent synchrony, pain control, and sedation.
[2021-03-06 21:41] LABS: BF Shift QC OK YES; Basophils Pericard Fl 2 %; Eosinophil Pericardical Fl 2 %; Lymphs Pericardial Fl 35 %; Man Diluent Bkgrd OK YES; Monocytes Pericard Fl 16 %; Neutrophils Pericardial Fluid 45 %; RBC Pericardial Fluid 320000 MM*3; WBC Pericardial Fluid 600 MM*3
--- NOTE | 2021-03-06 22:03 | PC.NURSE ---
1929 PATIENT REMAINS IN SVT 160'S, B/P 147/103. ASYNCHRONOUS WITH VENTILATOR PROPOFOL GTT RUNNING AT 40 MCG/KG/MIN. 60 MG PROPOFOL GIVEN TO PATIENT IV PUSH FROM DR. ELAINE ANESTHESIA PATIENT WAS FIGHTING, BUCKING VENT TRYING BITE ET TUBE. ORAL AIRWAY IN PLACE. 1931 HR 152, 98% 0N VENT 60% FI02, 124/65, RR 26 1932 HR 171, 98%, 98/44, C02 34, RR 26 PATIENT PROPOFOL GTT MAX RATE 50 MCG/KG/MIN REMAINS ASYNCHRONOUS WITH VENT. BECOMING AGITATED. ADDITIONAL 40 MG PROPROL GIVEN BY DR. ELAINE IV PUSH. 1933 PATIENT NOW SYNCHRONOUS WITH VENT. HEART RATE NOW NSR 90'S. HR 90, 97% ON VENTILATOR 60% FI02, 103/47, RR 26 1937 ADDITIONAL 1 L NORMAL SALINE HUNG PER DR. CUEVA #4 TOTAL COMBINED PER PROCEDURE AND PACU.
[2021-03-07 07:21] LABS: Total Protein Pericardial Flui 4.8
[2021-03-07 07:22] LABS: Albumin Pericardial Fluid 2.7; Creatinine Pericardial Fluid 0.6; Glucose Pericardial Fluid 235
== END 2021-03-06 20:30 | disposition short-term general hospital (02) ==
PROVIDERS: Physician Assistant; Radiology Diagnostic Radiology; Registered Nurse Community Health; Emergency Provider Emergency Medicine; PCP Pediatrics
DX: I31.3 Pericardial effusion (noninflammatory) (principal); I31.4 Cardiac tamponade; R06.02 Shortness of breath; R42 Dizziness and giddiness; E11.9 Type 2 diabetes mellitus without complications; Z20.822 Contact with and (suspected) exposure to COVID-19; Z79.4 Long term (current) use of insulin; Z79.899 Other long term (current) drug therapy
CPT/HCPCS: 36415; 49406; 71046; 75989; 80048; 80076; 81001; 82945; 83605; 83735; 83880; 84100; 84157; 84443; 84484; 85025; 85610; 85730; 87635; 88112; 89051; 93005; 93308; 94002; 96360; 99285; 99291; C1729; J0461; J1100; J2250; J2370; J2405; J3010

== ENCOUNTER 2022-03-12 11:57 | Emergency (ER) | payer OTHER, SELFPAY ==
--- NOTE | ~2022-03-12 | US_ITS ---
EXAMINATION: US VENOUS ULTRASOUND WITH DOPPLER LOWER EXTREMITY, BILATERAL CLINICAL INFORMATION: Shortness of breath. Leg swelling. Leg wounds. COMPARISON: None TECHNIQUE: Ultrasound of the deep veins is performed from the hip to the calf with compression sonography and color and pulse Doppler assessment. Spectral analysis with color-flow imaging is performed. FINDINGS: RIGHT: There is normal venous compression and respiratory variation and augmented flow. The visualized common femoral vein, superficial femoral vein, profunda femoral vein, popliteal vein, and the trifurcation region shows no evidence of deep venous thrombosis. There is no significant popliteal fossa cyst. LEFT: There is normal venous compression and respiratory variation and augmented flow. The visualized common femoral vein, superficial femoral vein, profunda femoral vein, popliteal vein, and the trifurcation region shows no evidence of deep venous thrombosis. There is no significant popliteal fossa cyst. US/US venous duplex LE BI IMPRESSION: No DVT demonstrated in the bilateral lower extremities.
--- NOTE | ~2022-03-12 | XR_ITS ---
EXAMINATION: XR CHEST CLINICAL INFORMATION: Shortness of breath, and leg swelling COMPARISON: Previous chest x-ray most recent February 2021 TECHNIQUE: 2 views of the chest were obtained. FINDINGS: The cardiac silhouette is enlarged. The cardiac silhouette appears decreased in size from previous exam. There is pulmonary venous redistribution and increased perihilar interstitial and alveolar markings. There are small bilateral pleural effusions. Findings are suggestive of CHF. There are degenerative changes of the spine. There are median sternotomy wires, small plates and screws. XR/XR chest 2V IMPRESSION: CHF.
[2022-03-12 12:19] VITALS: BP 218/100; PULSE 113; RESP 20; TEMP 36.2; O2SAT 95; BMI 49.8
--- NOTE | 2022-03-12 12:20 | ED.WOUNDLAC ---
HPI - Wound/Laceration General Chief Complaint: Dyspnea <ZEN Fofana - Last Filed: 03/12/22 12:31> Stated Complaint: L Leg Infection Diabetic <ZEN Fofana Last Filed: 03/12/22 12:31> Time Seen by Provider: 03/12/22 13:59 <ZEN Fofana - Last Filed: 03/12/22 12:31> Source: patient <ZEN Rocha - Last Filed: 03/12/22 15:53> Mode of arrival: wheelchair <ZEN Rocha - Last Filed: 03/12/22 15:53> History of Present Illness HPI narrative: 56-year-old male with a past medical history diabetes on insulin, KYLE, HTN, obesity, pericardial effusion with tamponade s/p drainage, presenting to the ED complaining of increasing bilateral LE pitting edema and SOB x2 weeks. Reports recently stopping his Lasix and Eliquis as instructed by wild animal caretaker in [place], now with increasing weight gain, dyspnea on exertion, and orthopnea. Denies fever, chills, cough, chest pain at present, abdominal pain, nausea/vomiting, recent travel <ZEN Rocha - Last Filed: 03/12/22 15:53> Onset (ago): day(s) <ZEN Rocha - Last Filed: 03/12/22 15:53> Related Data Home Medications: Home Medications Medication Instructions Recorded Confirmed albuterol sulfate 90 mcg/actuation 2 puff inhalation Q4-6H PRN 01/23/21 03/12/22 aerosol inhaler Wheezing aspirin 81 mg chewable tablet 81 mg PO DAILY 01/23/21 03/12/22 fluticasone propionate 50 1 spray intranasal DAILY PRN 01/23/21 03/12/22 mcg/actuation nasal Congestion spray,suspension insulin glargine 100 unit/mL (3 40 unit subcut DAILY 01/23/21 03/12/22 mL) subcutaneous pen (Lantus Solostar U-100 Insulin) insulin lispro 100 unit/mL 10 unit subcut TID 01/23/21 03/12/22 subcutaneous pen (Humalog KwikPen (U-100) Insulin) loratadine 5 mg/5 mL oral solution 10 ml PO DAILY 01/23/21 03/12/22 multivitamin 1 tab PO DAILY 01/23/21 03/12/22 oxycodone-acetaminophen 5 mg-325 1 tab PO Q12H 01/23/21 03/12/22 mg tablet losartan 100 mg tablet 1 tab PO DAILY 03/12/22 03/12/22 peg [id number] 1 1 drp ophthalmic (eye) BID PRN dry 03/12/22 03/12/22 %-0.2 %-0.2 % eye drops eyes (Artificial Tears ([id number])) Previous Rx's Medication Instructions Recorded guaifenesin 1,200 mg tablet, 1,200 mg PO BID #10 tabs 01/23/21 extended release 12 hr (Mucinex) <ZEN Fofana - Last Filed: 03/12/22 12:31> Allergies/Adverse Reactions: Allergies Allergy/AdvReac Type Severity Reaction Status Date / Time cinnamon [CINNAMON] Allergy Severe ANAPHYLAXIS Verified 01/23/21 13:00 Penicillins Allergy Mild FAINTING Verified 01/23/21 13:00 penicillin V Allergy Unknown Unconscious Verified 01/23/21 13:00 <ZEN Fofana - Last Filed: 03/12/22 12:31> Review of Systems Review of Systems: Constitutional: + Weight gain, No Fever, No Chills, No Night Sweats, No Fatigue, No Malaise ENT/Mouth: No Ear Pain, No Hoarseness, No sore throat, No Rhinorrhea, No Swallowing Difficulty Eyes: No Eye Pain, No Swelling, No Redness, No Vision Changes Cardiovascular: No Chest Pain, + SOB, + Dyspnea on Exertion, + Orthopnea, + Edema, No Palpitations Respiratory: No Cough, No Sputum, No Wheezing, No Dyspnea Gastrointestinal: No Nausea, No Vomiting, No Diarrhea, No Constipation, No Abdominal pain Genitourinary: No Dysuria, No Urinary Frequency, No Hematuria, No Flank Pain, No Urinary Flow Changes, No Hesitancy Musculoskeletal: No joint pain, No Myalgias, No Joint Swelling Skin: No Skin Lesions, No rash Neuro: No Weakness, No Loss of Consciousness, No Dizziness, No Headache <ZEN Rocha - Last Filed: 03/12/22 15:53> Yes all other systems are reviewed and are negative <ZEN Rocha - Last Filed: 03/12/22 15:53> Constitutional: Constitutional: Reports as per HPI <ZEN Rocha - Last Filed: 03/12/22 15:53> [facility] Past Medical History Attestation statement: The following information was validated with the patient. <ZEN Rocha - Last Filed: 03/12/22 15:53> Medical History: Medical History Diabetes HTN (hypertension) SOB (shortness of breath) <ZEN Fofana - Last Filed: 03/12/22 12:31> Social History Social History: Social History Alcohol intake: never Advance Directives: Yes Advance Directives Information Provided: Yes Advance Directives on File: No <ZEN Fofana - Last Filed: 03/12/22 12:31> Physical Exam Vital Signs: Vital Signs: Last Vital Signs Temp 97.2 F 03/12/22 12:19 Pulse 113 H 03/12/22 12:19 Resp 20 03/12/22 12:19 BP 218/100 H 03/12/22 12:19 Pulse Ox 95 03/12/22 12:19 O2 Del Method 03/12/22 12:19 BMI result Body Mass Index 49.8 <ZEN Fofana - Last Filed: 03/12/22 12:31> Vital Signs: Last Vital Signs Temp 97.2 F 03/12/22 12:19 Pulse 113 H 03/12/22 12:19 Resp 20 03/12/22 12:19 BP 218/100 H 03/12/22 12:19 Pulse Ox 95 03/12/22 12:19 O2 Del Method 03/12/22 12:19 BMI result Body Mass Index 49.8 <ZEN Rocha - Last Filed: 03/12/22 15:53> Const: General: cooperative <ZEN Rocha - Last Filed: 03/12/22 15:53> Orientation/consciousness: patient oriented x3 <ZEN Rocha - Last Filed: 03/12/22 15:53> Limitations: no limitations <Kerri Kimofanny PA - Last Filed: 03/12/22 15:53> HEENT: Head: Yes normal to inspection and Yes atraumatic <Kerri Dalal PA - Last Filed: 03/12/22 15:53> Ears: hearing grossly normal bilaterally <Kerri Dalal PA - Last Filed: 03/12/22 15:53> General nose exam: Normal external nose present <Kerri Dalal PA - Last Filed: 03/12/22 15:53> Face and sinus: Yes normal facial exam <Kerri Dalal PA - Last Filed: 03/12/22 15:53> Eyes: General: appearance normal, both eyes and all related structures <Kerri Dalal PA - Last Filed: 03/12/22 15:53> EOM: EOMs intact bilaterally <Kerri Dalal PA - Last Filed: 03/12/22 15:53> Neck: Neck: Yes normal visual inspection and Yes no meningeal signs <Kerri Dalal PA - Last Filed: 03/12/22 15:53> Resp: Other: Talking in short sentences <Kerri Dalal PA - Last Filed: 03/12/22 15:53> Effort & Inspection: labored and no respiratory distress <Kerri Dalal PA - Last Filed: 03/12/22 15:53> Auscultation: crackles bilateral at the base <Kerri Dalal PA - Last Filed: 03/12/22 15:53> Cardio: Rate: regular rate <Kerri Dalal PA - Last Filed: 03/12/22 15:53> Heart sounds: S1 normal heart sound present and S2 normal heart sound present <Kerri Dalal PA - Last Filed: 03/12/22 15:53> GI: Inspection: Yes normal to inspection <Kerri Dalal PA - Last Filed: 03/12/22 15:53> Palpation (GI): Soft to palpation, nontender, no guarding and not rigid <Kerri Dalal PA - Last Filed: 03/12/22 15:53> : General: Yes no CVA tenderness <Kerri Dalal PA - Last Filed: 03/12/22 15:53> Back/Spine/Pelvis: Back: no CVA tenderness <ZEN Rocha - Last Filed: 03/12/22 15:53> Skin: Rashes: no rashes <ZEN Rocha - Last Filed: 03/12/22 15:53> Wounds: no wounds <ZEN Rocha - Last Filed: 03/12/22 15:53> Neuro: General: patient oriented x3, tone normal and no meningeal signs <ZEN Rocha - Last Filed: 03/12/22 15:53> Gait exam (Neuro): Normal gait present <ZEN Rocha - Last Filed: 03/12/22 15:53> Extrem: Other: 4+ bilateral LE pitting edema <ZEN Rocha - Last Filed: 03/12/22 15:53> General: Yes edema <ZEN Rocha - Last Filed: 03/12/22 15:53> Course Course Course Narrative: 12:25pm - 56yoM c PMHx of DM, HTN, Asthma, pericardial effusion c pericardial tamponade & pericarditis seen here on 03/06/21 then transferred to [facility] who is s/p Triple Bypass was on Lasix and Eliquis although was told by PCP to stop taking those medications and has not taken those medications in a few months and since then has increasing weight gain, shortness of breath, dyspnea on exertion, orthopnea, lower extremity leg swelling and wounds that have been developing to his BLE's. On Exam pt appears SOB and is noted to be hypertensive. Reports that he forgot to take his blood pressure medication. Plan: Will obtain labs, chest x-ray, EKG, venous duplex ultrasound of bilateral lower extremity. Patient will be sent to the main ER for further evaluation treatment. Patient is stable. <ZEN Fofana - Last Filed: 03/12/22 12:31> 12:25pm - 56yoM c PMHx of DM, HTN, Asthma, pericardial effusion c pericardial tamponade & pericarditis seen here on 03/06/21 then transferred to [facility] who is s/p Triple Bypass was on Lasix and Eliquis although was told by PCP to stop taking those medications and has not taken those medications in a few months and since then has increasing weight gain, shortness of breath, dyspnea on exertion, orthopnea, lower extremity leg swelling and wounds that have been developing to his BLE's. On Exam pt appears SOB and is noted to be hypertensive. Reports that he forgot to take his blood pressure medication. Plan: Will obtain labs, chest x-ray, EKG, venous duplex ultrasound of bilateral lower extremity. Patient will be sent to the main ER for further evaluation treatment. Patient is stable. -[id number]--No leukocytosis. H/H stable. Initial troponin 39.9 > will obtain 3hr repeat. BNP 360 -COVID/flu/RSV XR chest 2V IMPRESSION: CHF. US venous duplex LE BI IMPRESSION: No DVT demonstrated in the bilateral lower extremities. > 40 mg of IV Lasix ordered. Plan to admit for further management <ZEN Rocha - Last Filed: 03/12/22 15:53> Medical Decision Making Medical Decision Making MDM Narrative: 56-year-old male with a past medical history diabetes on insulin, KYLE, HTN, obesity, pericardial effusion with tamponade s/p drainage, presenting to the ED complaining of increasing bilateral LE pitting edema and SOB x2 weeks. On exam hypertensive, tachycardic, talking in short sentences, appears short of breath, bibasilar crackles noted with 4+ bilateral LE pitting edema. Concern for CHF exacerbation vs viral illness vs pneumonia. Lower suspicion for ACS/PE Plan: EKG, labs, CXR, venous duplex ultrasound ordered in triage, plan for admission <ZEN Rocha - Last Filed: 03/12/22 15:53> Differential Diagnosis Differential Diagnoses: The differential diagnosis associated with the presentation includes <ZEN Rocha Last Filed: 03/12/22 15:53> Admission/Observation Consideration of admission/observation: Escalation of care including admission/observation considered <ZEN Rocha Last Filed: 03/12/22 15:53> Consult Healthcare Provider Management of the patient was discussed with: Hospitalist <ZEN Rocha Last Filed: 03/12/22 15:53> Lab Data Result Diagrams: : 03/12/22 12:59 03/12/22 12:59 <ZEN Fofana - Last Filed: 03/12/22 12:31> Labs: Lab Results 03/12/22 03/12/22 03/12/22 Range/Units 12:44 12:59 12:59 WBC 11.9 H (4.8-10.8) X10*3/uL RBC 4.59 L (4.60-5.80) X10*6/uL Hgb 12.3 L (14.0-18.0) g/dl Hct 38.3 L (42.0-52.0) % MCV 83.4 (80.0-98.0) fL MCH 26.8 L (27.0-33.0) pg MCHC 32.1 (31.0-36.0) g/dl RDW 13.8 (11.0-16.0) % Plt Count 302 (160-400) X10*3/uL MPV 11.8 (9.4-12.4) fL Immature Gran % (Auto) 0.5 H (0.0-0.4) % Neut % (Auto) 68.1 (45-73) % Lymph % (Auto) 22.1 (20-40) % Amador % (Auto) 7.2 (2-11) % Eos % (Auto) 1.7 (0-4) % Baso % (Auto) 0.4 (0-2) % Lymph # (Auto) 2.6 (1.2-4.9) X10*3/uL Amador # (Auto) 0.9 (0.1-1.2) X10*3/uL Eos # (Auto) 0.2 (0.0-0.4) X10*3/uL Baso # (Auto) 0.1 (0.0-0.2) X10*3/uL Abs Immat Gran (auto) 0.06 H (0.00-0.03) X10*3/uL Absolute Neuts (auto) 8.1 (2.0-8.3) x10*3/uL Absolute Nucleated RBC 0.000 (0.0-0.012) X10*3/uL Nucleated RBC % (auto) 0.0 (0.0-0.2) /100WBC PT 11.8 (10.0-13.1) SEC INR 1.0 (0.9-1.1) Sodium (135-145) mmol/L Potassium (3.3-5.1) mmol/L Chloride (96-108) mmol/L Carbon Dioxide (22-29) mmol/L Anion Gap (12-20) BUN (9-16) mg/dL Creatinine (0.5-1.4) mg/dL Estim Creat Clear Calc Estimated GFR Random Glucose (60-115) mg/dL Calcium (8.4-10.2) mg/dL Magnesium (1.6-2.6) mg/dL Total Bilirubin (0.0-1.0) mg/dL AST (5-37) U/L ALT (0-40) U/L Alkaline Phosphatase (39-117) U/L Troponin I High Sens (<3.5-35.0) ng/L B-Natriuretic Peptide (<100) pg/mL Total Protein (6.5-8.0) g/dL Albumin (3.5-5.0) g/dL Influenza Type A (PCR) NEGATIVE (Negative) Influenza Type B (PCR) NEGATIVE (Negative) RSV RNA Qual (PCR) NEGATIVE (Negative) SARS-CoV-2 RNA (RT-PCR) NEGATIVE (Negative) 03/12/22 03/12/22 03/12/22 Range/Units 12:59 12:59 12:59 WBC (4.8-10.8) X10*3/uL RBC (4.60-5.80) X10*6/uL Hgb (14.0-18.0) g/dl Hct (42.0-52.0) % MCV (80.0-98.0) fL MCH (27.0-33.0) pg MCHC (31.0-36.0) g/dl RDW (11.0-16.0) % Plt Count (160-400) X10*3/uL MPV (9.4-12.4) fL Immature Gran % (Auto) (0.0-0.4) % Neut % (Auto) (45-73) % Lymph % (Auto) (20-40) % Amador % (Auto) (2-11) % Eos % (Auto) (0-4) % Baso % (Auto) (0-2) % Lymph # (Auto) (1.2-4.9) X10*3/uL Amador # (Auto) (0.1-1.2) X10*3/uL Eos # (Auto) (0.0-0.4) X10*3/uL Baso # (Auto) (0.0-0.2) X10*3/uL Abs Immat Gran (auto) (0.00-0.03) X10*3/uL Absolute Neuts (auto) (2.0-8.3) x10*3/uL Absolute Nucleated RBC (0.0-0.012) X10*3/uL Nucleated RBC % (auto) (0.0-0.2) /100WBC PT (10.0-13.1) SEC INR (0.9-1.1) Sodium 142 (135-145) mmol/L Potassium 4.0 (3.3-5.1) mmol/L Chloride 108 (96-108) mmol/L Carbon Dioxide 26 (22-29) mmol/L Anion Gap 12 (12-20) BUN 18 H (9-16) mg/dL Creatinine 0.85 (0.5-1.4) mg/dL Estim Creat Clear Calc 147.3 Estimated GFR > 60 Random Glucose 69 (60-115) mg/dL Calcium 9.4 D (8.4-10.2) mg/dL Magnesium 2.0 (1.6-2.6) mg/dL Total Bilirubin 0.8 (0.0-1.0) mg/dL AST 17 (5-37) U/L ALT 23 (0-40) U/L Alkaline Phosphatase 72 (39-117) U/L Troponin I High Sens 39.9 H (<3.5-35.0) ng/L B-Natriuretic Peptide 360 H (<100) pg/mL Total Protein 6.6 (6.5-8.0) g/dL Albumin 4.0 (3.5-5.0) g/dL Influenza Type A (PCR) (Negative) Influenza Type B (PCR) (Negative) RSV RNA Qual (PCR) (Negative) SARS-CoV-2 RNA (RT-PCR) (Negative) <ZEN Fofana - Last Filed: 03/12/22 12:31> Lab Results 03/12/22 03/12/22 03/12/22 Range/Units 12:44 12:59 12:59 WBC 11.9 H (4.8-10.8) X10*3/uL RBC 4.59 L (4.60-5.80) X10*6/uL Hgb 12.3 L (14.0-18.0) g/dl Hct 38.3 L (42.0-52.0) % MCV 83.4 (80.0-98.0) fL MCH 26.8 L (27.0-33.0) pg MCHC 32.1 (31.0-36.0) g/dl RDW 13.8 (11.0-16.0) % Plt Count 302 (160-400) X10*3/uL MPV 11.8 (9.4-12.4) fL Immature Gran % (Auto) 0.5 H (0.0-0.4) % Neut % (Auto) 68.1 (45-73) % Lymph % (Auto) 22.1 (20-40) % Amador % (Auto) 7.2 (2-11) % Eos % (Auto) 1.7 (0-4) % Baso % (Auto) 0.4 (0-2) % Lymph # (Auto) 2.6 (1.2-4.9) X10*3/uL Amador # (Auto) 0.9 (0.1-1.2) X10*3/uL Eos # (Auto) 0.2 (0.0-0.4) X10*3/uL Baso # (Auto) 0.1 (0.0-0.2) X10*3/uL Abs Immat Gran (auto) 0.06 H (0.00-0.03) X10*3/uL Absolute Neuts (auto) 8.1 (2.0-8.3) x10*3/uL Absolute Nucleated RBC 0.000 (0.0-0.012) X10*3/uL Nucleated RBC % (auto) 0.0 (0.0-0.2) /100WBC PT 11.8 (10.0-13.1) SEC INR 1.0 (0.9-1.1) Sodium (135-145) mmol/L Potassium (3.3-5.1) mmol/L Chloride (96-108) mmol/L Carbon Dioxide (22-29) mmol/L Anion Gap (12-20) BUN (9-16) mg/dL Creatinine (0.5-1.4) mg/dL Estim Creat Clear Calc Estimated GFR Random Glucose (60-115) mg/dL Calcium (8.4-10.2) mg/dL Magnesium (1.6-2.6) mg/dL Total Bilirubin (0.0-1.0) mg/dL AST (5-37) U/L ALT (0-40) U/L Alkaline Phosphatase (39-117) U/L Troponin I High Sens (<3.5-35.0) ng/L B-Natriuretic Peptide (<100) pg/mL Total Protein (6.5-8.0) g/dL Albumin (3.5-5.0) g/dL Influenza Type A (PCR) NEGATIVE (Negative) Influenza Type B (PCR) NEGATIVE (Negative) RSV RNA Qual (PCR) NEGATIVE (Negative) SARS-CoV-2 RNA (RT-PCR) NEGATIVE (Negative) 03/12/22 03/12/22 03/12/22 Range/Units 12:59 12:59 12:59 WBC (4.8-10.8) X10*3/uL RBC (4.60-5.80) X10*6/uL Hgb (14.0-18.0) g/dl Hct (42.0-52.0) % MCV (80.0-98.0) fL MCH (27.0-33.0) pg MCHC (31.0-36.0) g/dl RDW (11.0-16.0) % Plt Count (160-400) X10*3/uL MPV (9.4-12.4) fL Immature Gran % (Auto) (0.0-0.4) % Neut % (Auto) (45-73) % Lymph % (Auto) (20-40) % Amador % (Auto) (2-11) % Eos % (Auto) (0-4) % Baso % (Auto) (0-2) % Lymph # (Auto) (1.2-4.9) X10*3/uL Amador # (Auto) (0.1-1.2) X10*3/uL Eos # (Auto) (0.0-0.4) X10*3/uL Baso # (Auto) (0.0-0.2) X10*3/uL Abs Immat Gran (auto) (0.00-0.03) X10*3/uL Absolute Neuts (auto) (2.0-8.3) x10*3/uL Absolute Nucleated RBC (0.0-0.012) X10*3/uL Nucleated RBC % (auto) (0.0-0.2) /100WBC PT (10.0-13.1) SEC INR (0.9-1.1) Sodium 142 (135-145) mmol/L Potassium 4.0 (3.3-5.1) mmol/L Chloride 108 (96-108) mmol/L Carbon Dioxide 26 (22-29) mmol/L Anion Gap 12 (12-20) BUN 18 H (9-16) mg/dL Creatinine 0.85 (0.5-1.4) mg/dL Estim Creat Clear Calc 147.3 Estimated GFR > 60 Random Glucose 69 (60-115) mg/dL Calcium 9.4 D (8.4-10.2) mg/dL Magnesium 2.0 (1.6-2.6) mg/dL Total Bilirubin 0.8 (0.0-1.0) mg/dL AST 17 (5-37) U/L ALT 23 (0-40) U/L Alkaline Phosphatase 72 (39-117) U/L Troponin I High Sens 39.9 H (<3.5-35.0) ng/L B-Natriuretic Peptide 360 H (<100) pg/mL Total Protein 6.6 (6.5-8.0) g/dL Albumin 4.0 (3.5-5.0) g/dL Influenza Type A (PCR) (Negative) Influenza Type B (PCR) (Negative) RSV RNA Qual (PCR) (Negative) SARS-CoV-2 RNA (RT-PCR) (Negative) <ZEN Rocha - Last Filed: 03/12/22 15:53> Critical Care Time Critical Care Time Critical Care Time: Yes <ZEN Rocha - Last Filed: 03/12/22 15:53> Total Critical Care Time: 40 <ZEN Rocha - Last Filed: 03/12/22 15:53> Attestation: I have personally provided critical care time exclusive of time spent on separately billable procedures. Time includes review of lab data, radiology results, discussion with consultants, and monitoring for potential decompensation. Intervention performed as documented. <ZEN Rocha - Last Filed: 03/12/22 15:53> Discharge Plan Discharge Clinical Impression: Congestive heart failure <ZEN Fofana - Last Filed: 03/12/22 12:31> Patient Disposition: Admitted As Inpatient <ZEN Fofana - Last Filed: 03/12/22 12:31>
--- NOTE | 2022-03-12 12:22 | ECG_ITS ---
Test Reason : SOB Blood Pressure : / mmHG Vent. Rate : 101 BPM Atrial Rate : 101 BPM P-R Int : 158 ms QRS Dur : 088 ms QT Int : 350 ms P-R-T Axes : 061 059 078 degrees QTc Int : 453 ms Sinus tachycardia Possible Left atrial enlargement Borderline ECG When compared to the previous EKG of 06 mar 2021, ST segment elevation improved. Referred By: Berenice Mcfarlane Electronically Signed By:JOSE ROUSE
[2022-03-12 13:16] LABS: MANUAL DIFF FLAG NO
[2022-03-12 13:23] LABS: Basophils Absolute Auto 0.1 X10*3/uL (0.0-0.2); Basophils Percent Auto 0.4 % (0-2); Eosinophils Absolute Auto 0.2 X10*3/uL (0.0-0.4); Eosinophils Percent Auto 1.7 % (0-4); Hematocrit 38.3 % (42.0-52.0); Hemoglobin 12.3 g/dl (14.0-18.0); Imm Gran Abs Auto 0.06 X10*3/uL (0.00-0.03); Imm Gran Pct Auto 0.5 % (0.0-0.4); Lymphocytes Absolute Auto 2.6 X10*3/uL (1.2-4.9); Lymphocytes Percent Auto 22.1 % (20-40); Mean Corpuscular HGB Conc 32.1 g/dl (31.0-36.0); Mean Corpuscular Hemoglobin 26.8 pg (27.0-33.0); Mean Corpuscular Volume 83.4 fL (80.0-98.0); Mean Platelet Volume 11.8 fL (9.4-12.4); Monocytes Absolute Auto 0.9 X10*3/uL (0.1-1.2); Monocytes Percent Auto 7.2 % (2-11); Neutrophils Absolute Auto 8.1 x10*3/uL (2.0-8.3); Neutrophils Percent Auto 68.1 % (45-73); Platelet Count 302 X10*3/uL (160-400); Red Blood Count 4.59 X10*6/uL (4.60-5.80); Red Cell Distribution Width 13.8 % (11.0-16.0); White Blood Count 11.9 X10*3/uL (4.8-10.8)
[2022-03-12 13:27] LABS: Influenza A PCR NEGATIVE (Negative); Influenza B PCR NEGATIVE (Negative); Resp Syncy Virus RNA Qual PCR NEGATIVE (Negative); SARS COV2 PCR INHOUSE NEGATIVE (Negative)
[2022-03-12 13:28] LABS: Prothrombin Time 11.8 SEC (10.0-13.1)
[2022-03-12 13:43] LABS: Alanine Aminotransferase 23 U/L (0-40); Alkaline Phosphatase 72 U/L (39-117); Anion Gap 12 (12-20); Aspartate Amino Transferase 17 U/L (5-37); Bilirubin Total 0.8 mg/dL (0.0-1.0); Blood Urea Nitrogen 18 mg/dL (9-16); Calcium 9.4 mg/dL (8.4-10.2); Carbon Dioxide 26 mmol/L (22-29); Chloride 108 mmol/L (96-108); Creatinine Clr Calc Pharmacy 147.3; Estimated Glomerular Filt Rate > 60; Glucose Random 69 mg/dL (60-115); Sodium 142 mmol/L (135-145); Total Protein 6.6 g/dL (6.5-8.0)
[2022-03-12 13:47] LABS: B Type Natriuretic Peptide 360 pg/mL (<100)
[2022-03-12 13:51] LABS: Troponin-I High Sensitivity 39.9 ng/L (<3.5-35.0)
--- NOTE | 2022-03-12 15:10 | PHA.MEDREC ---
Pharmacy Consult ? Medication Reconciliation Pharmacy has completed the medication reconciliation. Patient reported all medications. Reports only took insulin this morning. Kimi Patten, JaredD
--- NOTE | 2022-03-12 16:45 | PM.IMHP ---
History of Present Illness Date of Service: 03/12/22 Chief Complaint: SOB 56-year-old male with a past medical history diabetes on insulin, KYLE, HTN, obesity, pericardial effusion with tamponade s/p drainage, presenting to the ED complaining of increasing bilateral LE pitting edema and SOB x2 weeks.? Reports recently stopping his Lasix and Eliquis as instructed by ict quality assurance engineer in [place], now with increasing weight gain, dyspnea on exertion, and orthopnea.? Denies fever, chills, cough, chest pain at present, abdominal pain, nausea/vomiting, recent travel. In the ER, BNP 360, troponin 39.9, negative COVID, negative flu, 1 episode of elevated blood pressure of 218/100 however this did resolve with a dose of IV Lasix. Bilateral lower extremity venous Doppler ultrasound negative for DVT, chest x-ray showing CHF. He did receive a dose of IV Lasix in the ER. He will be admitted for further management and treatment of acute on chronic congestive heart failure. Review of Systems Review of Systems: Denies any recent fever chills or decrease in appetite respiratory See HPI cardiovascular reports bilateral lower extremity edema gastrointestinal denies any dysphagia abdominal pain nausea vomiting or diarrhea genitourinary denies any dysuria frequency or hematuria musculoskeletal denies any joint pain or swelling neuropsych denies any weakness or seizures all other systems reviewed are negative [facility] Medical History (Updated 03/12/22 @ 17:02 by Marielle Jack NP) Diabetes Heart failure with preserved ejection fraction HTN (hypertension) Pericardial effusion SOB (shortness of breath) Pertinent family history: Cardiac disease Surgical History (Updated 03/12/22 @ 17:02 by Marielle Jack NP) S/P pericardiocentesis Social History Alcohol intake: never Meds Allergies Allergy/AdvReac Type Severity Reaction Status Date / Time cinnamon [CINNAMON] Allergy Severe ANAPHYLAXIS Verified 01/23/21 13:00 Penicillins Allergy Mild FAINTING Verified 01/23/21 13:00 penicillin V Allergy Unknown Unconscious Verified 01/23/21 13:00 Home Medications Medication Instructions Recorded Confirmed Last Taken Type albuterol sulfate 90 mcg/actuation 2 puff inhalation Q4-6H PRN 01/23/21 03/12/22 03/11/22 History aerosol inhaler Wheezing aspirin 81 mg chewable tablet 81 mg PO DAILY 10/26/21 12/13/22 12/12/22 History fluticasone propionate 50 1 spray intranasal DAILY PRN 01/23/21 03/12/22 03/11/22 History mcg/actuation nasal Congestion spray,suspension insulin glargine 100 unit/mL (3 40 unit subcut DAILY 01/23/21 03/12/22 03/12/22 History mL) subcutaneous pen (Lantus Solostar U-100 Insulin) insulin lispro 100 unit/mL 10 unit subcut TID 01/23/21 03/12/22 03/12/22 History subcutaneous pen (Humalog KwikPen (U-100) Insulin) loratadine 5 mg/5 mL oral solution 10 ml PO DAILY 01/23/21 03/12/22 03/11/22 History multivitamin 1 tab PO DAILY 01/23/21 03/12/22 03/11/22 History oxycodone-acetaminophen 5 mg-325 1 tab PO Q12H 01/23/21 03/12/22 03/11/22 History mg tablet losartan 100 mg tablet 1 tab PO DAILY 03/12/22 03/12/22 03/11/22 History peg 122-[id number] 1 1 drp ophthalmic (eye) BID PRN dry 03/12/22 03/12/22 03/11/22 History %-0.2 %-0.2 % eye drops eyes (Artificial Tears ([id number])) Physical Exam Vital Signs and Narrative: Vital Signs: Last Vital Signs Temp 97.2 F 03/12/22 12:19 Pulse 113 H 03/12/22 12:19 Resp 20 03/12/22 12:19 BP 218/100 H 03/12/22 12:19 Pulse Ox 95 03/12/22 12:19 O2 Del Method 03/12/22 12:19 BMI result Body Mass Index 49.8 Appearing in no acute distress head is normocephalic atraumatic eyes pupils are PERRLA sclera is anicteric mouth throat mucous membranes are intact and moist neck is supple no lymphadenopathy, no JVD noted lung sounds are clear to auscultation heart regular rate rhythm, clear S1, S2 positive bowel sounds, abdomen is soft, nontender neuro patient is alert x3, no focal deficits Results Labs CBC and Chem 7: 03/12/22 12:59 03/12/22 12:59 Labs: Laboratory Results - last 24 hr 03/12/22 03/12/22 03/12/22 12:44 12:59 12:59 MCV 83.4 MCH 26.8 L MCHC 32.1 RDW 13.8 Plt Count 302 MPV 11.8 Immature Gran % (Auto) 0.5 H Neut % (Auto) 68.1 Lymph % (Auto) 22.1 [place] % (Auto) 7.2 Eos % (Auto) 1.7 Baso % (Auto) 0.4 Lymph # (Auto) 2.6 [place] # (Auto) 0.9 Eos # (Auto) 0.2 Baso # (Auto) 0.1 Abs Immat Gran (auto) 0.06 H Absolute Neuts (auto) 8.1 Absolute Nucleated RBC 0.000 Nucleated RBC % (auto) 0.0 PT 11.8 INR 1.0 Anion Gap Estim Creat Clear Calc Estimated GFR Random Glucose Calcium Magnesium Total Bilirubin AST ALT Alkaline Phosphatase Troponin I High Sens B-Natriuretic Peptide Total Protein Albumin Influenza Type A (PCR) NEGATIVE Influenza Type B (PCR) NEGATIVE RSV RNA Qual (PCR) NEGATIVE SARS-CoV-2 RNA (RT-PCR) NEGATIVE 03/12/22 03/12/22 03/12/22 12:59 12:59 12:59 MCV MCH MCHC RDW Plt Count MPV Immature Gran % (Auto) Neut % (Auto) Lymph % (Auto) [place] % (Auto) Eos % (Auto) Baso % (Auto) Lymph # (Auto) [place] # (Auto) Eos # (Auto) Baso # (Auto) Abs Immat Gran (auto) Absolute Neuts (auto) Absolute Nucleated RBC Nucleated RBC % (auto) PT INR Anion Gap 12 Estim Creat Clear Calc 147.3 Estimated GFR > 60 Random Glucose 69 Calcium 9.4 D Magnesium 2.0 Total Bilirubin 0.8 AST 17 ALT 23 Alkaline Phosphatase 72 Troponin I High Sens 39.9 H B-Natriuretic Peptide 360 H Total Protein 6.6 Albumin 4.0 Influenza Type A (PCR) Influenza Type B (PCR) RSV RNA Qual (PCR) SARS-CoV-2 RNA (RT-PCR) Imaging Radiologist's Impressions: Impressions Chest X-Ray 03/12/22 13:20 IMPRESSION: CHF. Venous Duplex 03/12/22 13:30 IMPRESSION: No DVT demonstrated in the bilateral lower extremities. Assessment and Plan (1) Congestive heart failure: Status: Acute Plan 56-year-old admitted with acute on chronic congestive heart failure Acute on chronic congestive heart failure with preserved ejection fraction Last echocardiogram 03/06/2021 showed EF of 60 65% with evidence of regional wall motion abnormalities in history of pericardial effusion Apparently had been off his medication for several weeks, unable to quantify exactly how long Will use treat with Lasix 40 mg IV twice daily Cardiology consultation Monitor on telemetry Daily weights, strict intake and output Supplemental oxygen as needed Hypertension with episodes of elevated blood pressure Trended down Continue losartan add 2nd agent if blood pressure remains elevated Will add hydralazine p.r.n. Lower extremity dryness likely secondary to fluid overload lac hydrin Diabetes mellitus Sliding scale, ADA diet, continue Lantus History of asthma No exacerbation Albuterol as needed Morbid obesity. BMI 49.8 Discussed importance of weight management as this may be contributing to worsening of other comorbidities DVT prophylaxis with Lovenox Full code Patient will require to inpatient night stays for treatment of acute on chronic congestive heart failure requiring IV diuretics Time Spent With Patient Time: Total time managing care of this patient today ____ minutes. Quality Stroke Does the patient have a stroke diagnosis?: No VTE Prior VTE?: No VTE Risk Level:: Medical - moderate - high VTE Device Contraindication: Treatment Not Indicated VTE Drug Contraindication: N/A - Med Ordered
[2022-03-12 16:54] VITALS: BP 103/87; PULSE 104; RESP 20; TEMP 36.6; O2SAT 98
[2022-03-12] MEDS: Furosemide 40 MG/4 ML VIAL IVPUSH (17:39)
[2022-03-12 18:03] LABS: Troponin-I High Sensitivity 56.2 ng/L (<3.5-35.0)
[2022-03-12 18:42] LABS: Glucose, Whole Blood 120 mg/dL (60-115)
--- NOTE | 2022-03-12 18:45 | PM.EVENT ---
Event Note Date of Service: 03/12/22 Event Note: This patient is seen and examined with APC. 56-year-old male with KYLE, hypertension, obesity diabetes on insulin, history of cardiac tamponade and and drainage-came to the hospital because of increasing leg edema and shortness of breath for 2 weeks-as per the patient he stopped his Lasix and Eliquis 2 weeks ago as per a clinical admissions manager and since then he is having weight gain dyspnea and orthopnea. In the emergency room his blood pressure was in 200 range mild elevated troponin Admission was requested for CHF exacerbation. Lab imaging, EKG reviewed. CBC shows mild leukocytosis, BMP seems fine BUN is 18 creatinine is 0.85,bnp 360 Troponin is 39.9, 56 EKG is mostly sinus tachycardia. Venous duplex, no DVT. And chest x-ray: Possible CHF Physical exam and assessment and plan coordinated in APCs note, Agree with the plan in addition: CHF exacerbation etiology unclear echo will add Continue IV Lasix, input and output, elevate, cardiology consult. Time Spent With Patient Time: Total time managing care of this patient today ____ minutes.
--- NOTE | 2022-03-12 20:04 | PC.NURSE ---
Assumed care of patient. Patient does not want to stay and is aware he would be leaving AMA. Provider notified via [place] Text.
[2022-03-12 20:08] VITALS: BP 189/87; PULSE 102; RESP 22; TEMP 37; O2SAT 96
--- NOTE | 2022-03-12 20:30 | PC.NURSE ---
Patient refused meds per MAR.
--- NOTE | 2022-03-12 20:33 | PC.NURSE ---
Addendum entered by Jacinta Flores 03/12/22 20:34: Present when hospitalist, Dr Zuniga spoke to patient and advised patient to stay as an admitted patient. Patient decided he will be leaving and will return should his symptoms worsen. AMA form given and explained to patient. Patient signed AMA form. Original Note: Present when hospitalist, Dr Zuniga spoke to patient and advised him to stay as an admitted patient
--- NOTE | 2022-03-12 20:35 | PC.NURSE ---
Patient left. No apparent distress, speaking in full sentences, ambulates safely and independently with cane.
--- NOTE | 2022-03-12 20:40 | PM.EVENT ---
Event Note Date of Service: 03/12/22 Event Note: Pt wants to leave AMA. I explained in detail the reason why he should not especially the fact that he needs further testing and treatment of his CHF. Pt understands the risk he is taking by leaving against my advice and states that he will see his financing analyst in the morning. He understands that in worst case scenario he may go into cardiac arrest if he leaves before being fully treated and evaluated. Pt understands the risk. Time Spent With Patient Time: Total time managing care of this patient today ____ minutes.
--- NOTE | 2022-03-13 09:22 | P.DS_ITS ---
DS: Providers Provider Date of Service: 03/13/22 Primary care physician: Pepper Cosme MD Consults: 03/12/22 16:56 Consult to Cardiology Routine Consulting Provider: Pb Walker Reason for consultation: Acute heart failure with preserved ejection fraction Has provider been notified: No DS: Diagnosis Discharge Diagnosis (1) Congestive heart failure: Status: Acute (2) HTN (hypertension): Status: Acute DS: Summary Hospital Course Hospital Course: Patient was admitted for CHF exacerbation-started on IV Lasix, also started on blood pressure medications for htn -continue losartan and added IV hydralazine for p.r.n. for blood pressure control: Patient subsequently left AMA-please see H&P note for further details and event not from night physician. Time Spent with Patient Time attestation: Total time managing care of this patient today ____ minutes. Discharge coordination time: Greater than 30 minutes Quality: Safe Use of Opioids Does Pt have an Active Cancer Diagnosis on the Problem List?: No Quality: Stroke Does the patient have a stroke diagnosis?: No Physical Exam Vital Signs: Vital Signs: Last Vital Signs BMI result Patient left against medical advise-overnight. DS: Data Data Completed and Pending Labs on day of discharge: Laboratory Results - last 24 hr 03/12/22 03/12/22 03/12/22 12:44 12:59 12:59 WBC 11.9 H RBC 4.59 L Hgb 12.3 L Hct 38.3 L MCV 83.4 MCH 26.8 L MCHC 32.1 RDW 13.8 Plt Count 302 MPV 11.8 Immature Gran % (Auto) 0.5 H Neut % (Auto) 68.1 Lymph % (Auto) 22.1 [place] % (Auto) 7.2 Eos % (Auto) 1.7 Baso % (Auto) 0.4 Lymph # (Auto) 2.6 [place] # (Auto) 0.9 Eos # (Auto) 0.2 Baso # (Auto) 0.1 Abs Immat Gran (auto) 0.06 H Absolute Neuts (auto) 8.1 Absolute Nucleated RBC 0.000 Nucleated RBC % (auto) 0.0 PT 11.8 INR 1.0 Sodium Potassium Chloride Carbon Dioxide Anion Gap BUN Creatinine Estim Creat Clear Calc Estimated GFR POC Glucose Random Glucose Calcium Magnesium Total Bilirubin AST ALT Alkaline Phosphatase Troponin I High Sens B-Natriuretic Peptide Total Protein Albumin Influenza Type A (PCR) NEGATIVE Influenza Type B (PCR) NEGATIVE RSV RNA Qual (PCR) NEGATIVE SARS-CoV-2 RNA (RT-PCR) NEGATIVE 03/12/22 03/12/22 03/12/22 12:59 12:59 12:59 WBC RBC Hgb Hct MCV MCH MCHC RDW Plt Count MPV Immature Gran % (Auto) Neut % (Auto) Lymph % (Auto) [place] % (Auto) Eos % (Auto) Baso % (Auto) Lymph # (Auto) [place] # (Auto) Eos # (Auto) Baso # (Auto) Abs Immat Gran (auto) Absolute Neuts (auto) Absolute Nucleated RBC Nucleated RBC % (auto) PT INR Sodium 142 Potassium 4.0 Chloride 108 Carbon Dioxide 26 Anion Gap 12 BUN 18 H Creatinine 0.85 Estim Creat Clear Calc 147.3 Estimated GFR > 60 POC Glucose Random Glucose 69 Calcium 9.4 D Magnesium 2.0 Total Bilirubin 0.8 AST 17 ALT 23 Alkaline Phosphatase 72 Troponin I High Sens 39.9 H B-Natriuretic Peptide 360 H Total Protein 6.6 Albumin 4.0 Influenza Type A (PCR) Influenza Type B (PCR) RSV RNA Qual (PCR) SARS-CoV-2 RNA (RT-PCR) 03/12/22 03/12/22 17:28 18:38 WBC RBC Hgb Hct MCV MCH MCHC RDW Plt Count MPV Immature Gran % (Auto) Neut % (Auto) Lymph % (Auto) [place] % (Auto) Eos % (Auto) Baso % (Auto) Lymph # (Auto) [place] # (Auto) Eos # (Auto) Baso # (Auto) Abs Immat Gran (auto) Absolute Neuts (auto) Absolute Nucleated RBC Nucleated RBC % (auto) PT INR Sodium Potassium Chloride Carbon Dioxide Anion Gap BUN Creatinine Estim Creat Clear Calc Estimated GFR POC Glucose 120 H Random Glucose Calcium Magnesium Total Bilirubin AST ALT Alkaline Phosphatase Troponin I High Sens 56.2 H D B-Natriuretic Peptide Total Protein Albumin Influenza Type A (PCR) Influenza Type B (PCR) RSV RNA Qual (PCR) SARS-CoV-2 RNA (RT-PCR) Imaging Chest x-ray: Radiologist's impression: ITS Impressions Chest X-Ray 03/12/22 13:20 IMPRESSION: CHF. Venous Duplex 03/12/22 13:30 IMPRESSION: No DVT demonstrated in the bilateral lower extremities. Discharge Plan Discharge Clinical Impression: Congestive heart failure Patient Disposition: Left Against Medical Advice Prescriptions: New ammonium lactate 12 % Lotion 1 appl topical BID 5 Days Qty: 225 0RF Protocol: Apply to: Apply to: bilateral LE No Action loratadine 5 mg/5 mL solution 10 ml PO DAILY oxycodone-acetaminophen 5-325 mg tablet 1 tab PO Q12H insulin glargine [Lantus Solostar U-100 Insulin] 100 unit/mL (3 mL) insulin pen 40 unit subcut DAILY multivitamin Tablet 1 tab PO DAILY aspirin 81 mg Tablet,Chewable 81 mg PO DAILY albuterol sulfate 90 mcg/actuation Hfa Aerosol Inhaler 2 puff INHALATION Q4-6H PRN (Reason: Wheezing) fluticasone propionate [Flonase] 50 mcg/actuation [place],Suspension 1 spray INTRANASAL DAILY PRN (Reason: Congestion) insulin lispro [Humalog KwikPen Insulin] 100 unit/mL insulin pen 10 unit subcut TID Mucinex 1,200 mg tablet extended release 12hr 1,200 mg PO BID Qty: 10 0RF losartan 100 mg tablet 1 tab PO DAILY Artificial Tears([id number]) 1-0.2-0.2 % drops 1 drp ophthalmic (eye) BID PRN (Reason: dry eyes) Referrals: Pepper Cosme MD [Primary Care Provider] - 1 Week Interventions: ED Discharge Assessment Last Done: 03/13/22 05:18 Discharge Date/Time: 03/12/22 23:49
== END 2022-03-12 23:49 | disposition left against medical advice (07) ==
LOC: HO.ED 15:53 → HO.EDOVER 17:05
PROVIDERS: Internal Medicine; Physician Assistant Medical; Emergency Provider Emergency Medicine; PCP Pediatrics; Visit Provider Nurse Practitioner Acute Care
DX: I50.9 Heart failure, unspecified (principal); R60.0 Localized edema; R06.02 Shortness of breath; I10 Essential (primary) hypertension; Z20.822 Contact with and (suspected) exposure to COVID-19; Z79.899 Other long term (current) drug therapy
CPT/HCPCS: 0241U; 36415; 71046; 80053; 82947; 83735; 83880; 84484; 85025; 85610; 93005; 93970; 96374; 96375; 99284; J1940